=== PATIENT | female | born 1995 | race American Indian/Alaskan Native ===

== ENCOUNTER 2018-10-24 08:12 | Emergency (ER) | payer MEDICAID, OTHER ==
--- NOTE | 2018-10-24 09:05 | Emergency Department Report ---
ED Female HPI - General Chief complaint: Urogenital-Female Stated complaint: VAGINAL DISCOMFORT/ABD PAIN Time Seen by Provider: 10/24/18 08:34 Source: patient Mode of arrival: Ambulatory Limitations: No Limitations - History of Present Illness Initial comments: This is a 22-year-old female who presents complaining of vaginal itching and discharge for the past week. Patient states also having some low pelvic cramping. Patient relates follow-up odor intermittently on and off. Patient states she doesn't concern for STD due to the fact that she had a long time unprotected intercourse. She denies vaginal bleed, fever, dysuria, hematuria MD Complaint: vaginal discharge - Related Data Previous Rx's Medication Instructions Recorded Last Taken Type Naproxen [Naprosyn TAB] 500 mg PO BID #30 tablet 04/09/14 Unknown Rx Ibuprofen [Motrin 600 MG tab] 600 mg PO Q8H PRN #20 tablet 03/31/16 Unknown Rx Fluconazole [Diflucan TAB] 150 mg PO DAILY #2 tablet 10/24/18 Unknown Rx Allergies Allergy/AdvReac Type Severity Reaction Status Date / Time No Known Allergies Allergy Unverified 04/09/14 10:58 ED Review of Systems ROS: Stated complaint: VAGINAL DISCOMFORT/ABD PAIN Other details as noted in HPI Comment: All other systems reviewed and negative ED Past Medical Hx - Past Medical History Previous Medical History?: No - Surgical History Past Surgical History?: No - Social History Smoking Status: Never Smoker Substance Use Type: None - Medications Home Medications: Home Medications Medication Instructions Recorded Confirmed Last Taken Type Naproxen [Naprosyn TAB] 500 mg PO BID #30 tablet 04/09/14 Unknown Rx Ibuprofen [Motrin 600 MG tab] 600 mg PO Q8H PRN #20 tablet 03/31/16 Unknown Rx Fluconazole [Diflucan TAB] 150 mg PO DAILY #2 tablet 10/24/18 Unknown Rx ED Physical Exam - General Limitations: No Limitations General appearance: alert, in no apparent distress - Head Head exam: Present: atraumatic, normocephalic - Eye Eye exam: Present: normal appearance - ENT ENT exam: Present: mucous membranes moist - Neck Neck exam: Present: normal inspection - Respiratory Respiratory exam: Present: normal lung sounds bilaterally. Absent: respiratory distress - Cardiovascular Cardiovascular Exam: Present: regular rate, normal rhythm. Absent: systolic murmur, diastolic murmur, rubs, gallop - GI/Abdominal GI/Abdominal exam: Present: soft, normal bowel sounds. Absent: distended, tenderness, guarding - External exam: Present: normal external exam. Absent: erythema, swelling Speculum exam: Present: vaginal discharge, cervical discharge, other (wet prep some full collected). Absent: vaginal bleeding, laceration Bi-manual exam: Present: normal bi-manual exam. Absent: cervical motion tendernes, adnexal tenderness, uterine tenderness - Extremities Exam Extremities exam: Present: normal inspection - Back Exam Back exam: Present: normal inspection - Neurological Exam Neurological exam: Present: alert, oriented X3 - Psychiatric Psychiatric exam: Present: normal affect, normal mood - Skin Skin exam: Present: warm, dry, intact, normal color. Absent: rash ED Course Vital Signs 10/24/18 10/24/18 08:16 09:07 Temperature 98.7 F Pulse Rate 96 H Respiratory 18 18 Rate Blood Pressure 114/81 O2 Sat by Pulse 98 99 Oximetry ED Medical Decision Making - Medical Decision Making 22-year-old female presents with the use Loni vaginitis Patient will be discharged home with Diflucan 2. Discussed findings with the patient. Urinalysis negative for UTIs and negative test. Discussed all findings with the patient. Discussed that gonorrhea/chlamydia tests will be resulted in 3-4 days to follow-up as needed. Vital signs normal patient's instructions and will follow-up. I discussed than there is no indication of std via wet prep and physical exam Critical care attestation.: If time is entered above; I have spent that time in minutes in the direct care of this critically ill patient, excluding procedure time. ED Disposition Clinical Impression: Yeast infection, Vulvovaginal candidiasis Disposition: - TO HOME OR SELFCARE Is pt being admited?: No Does the pt Need Aspirin: No Condition: Stable Instructions: Vulvovaginal Candidiasis (ED), Vaginitis (ED) Additional Instructions: Make sure to follow up with the primary care physician as discussed. Take all your medications as you've been prescribed. If you have any worsening symptoms or develop new symptoms please return to ED immediately. Prescriptions: Fluconazole [Diflucan TAB] 150 mg PO DAILY #2 tablet Referrals: [facility] [Other] - 3-5 Days Forms: Work/School Release Form(ED) Time of Disposition: 09:50
[2018-10-24 09:19] LABS: Bilirubin,Urine NEG (Negative); Blood,Urine NEG (Negative); Color,Urine Yellow (Yellow); Mucus,Urine 3+ /HPF; Protein,Urine <15 mg/dL mg/dL (Negative)
[2018-10-24 09:40] LABS: HCG Qualitative,Urine Negative (Negative)
[2018-10-24 10:41] VITALS: BP 110/67
== END 2018-10-24 10:38 | disposition home or self-care (01) ==
LOC: ED 08:12
DX: B37.3 Candidiasis of vulva and vagina (principal); B37.9 Candidiasis, unspecified
CPT/HCPCS: 81001; 81025; 87210; 87591

== ENCOUNTER 2018-11-01 16:34 | Emergency (ER) | payer OTHER ==
[2018-11-01] MEDS ORDERED: ROCEPHIN IM ONE (16:46)
[2018-11-01] MEDS ORDERED: XYLOCAINE 1% MPF 5 mL INFILTRATI ONE (16:46)
--- NOTE | 2018-11-01 16:49 | Emergency Department Report ---
ED Recheck HPI - General Chief Complaint: Recheck/Abnormal Lab/Rx Stated Complaint: SENT BY DOCTOR Time Seen by Provider: 11/01/18 16:46 Source: patient Mode of arrival: Ambulatory Limitations: No Limitations - History of Present Illness MD Complaint: other (CALL BACK FOR POS GONNORHEA) Symptoms Since Prior Visit: no new symptoms - Related Data Previous Rx's Medication Instructions Recorded Last Taken Type Naproxen [Naprosyn TAB] 500 mg PO BID #30 tablet 04/09/14 Unknown Rx Ibuprofen [Motrin 600 MG tab] 600 mg PO Q8H PRN #20 tablet 03/31/16 Unknown Rx Fluconazole [Diflucan TAB] 150 mg PO DAILY #2 tablet 10/24/18 Unknown Rx Allergies Allergy/AdvReac Type Severity Reaction Status Date / Time No Known Allergies Allergy Verified 11/01/18 16:36 ED Review of Systems ROS: Stated complaint: SENT BY DOCTOR Other details as noted in HPI Comment: All other systems reviewed and negative ED Past Medical Hx - Past Medical History Previous Medical History?: No Hx Congestive Heart Failure: No - Surgical History Past Surgical History?: No - Family History Family history: no significant - Social History Smoking Status: Never Smoker Substance Use Type: None - Medications Home Medications: Home Medications Medication Instructions Recorded Confirmed Last Taken Type Naproxen [Naprosyn TAB] 500 mg PO BID #30 tablet 04/09/14 Unknown Rx Ibuprofen [Motrin 600 MG tab] 600 mg PO Q8H PRN #20 tablet 03/31/16 Unknown Rx Fluconazole [Diflucan TAB] 150 mg PO DAILY #2 tablet 10/24/18 Unknown Rx ED Physical Exam - General Limitations: No Limitations General appearance: alert - Head Head exam: Present: atraumatic - Eye Eye exam: Present: normal appearance, PERRL - ENT ENT exam: Present: mucous membranes moist - Neck Neck exam: Present: normal inspection - Respiratory Respiratory exam: Present: normal lung sounds bilaterally - Cardiovascular Cardiovascular Exam: Present: regular rate - GI/Abdominal GI/Abdominal exam: Present: soft - Rectal Rectal exam: Present: deferred - Extremities Exam Extremities exam: Present: normal inspection - Back Exam Back exam: Present: normal inspection - Neurological Exam Neurological exam: Present: alert, oriented X3 - Psychiatric Psychiatric exam: Present: normal affect, normal mood ED Recheck MDM - Core Measures Measure Exclusions: not indicated - Medical Decision Making CALL BACK FOR GONORRHEA 4-8 IM ROCEPHIN AND OBGYN FOLLOW UP Vital Signs 11/01/18 16:47 Temperature 99.4 F Pulse Rate 105 H Respiratory 16 Rate Blood Pressure 138/81 O2 Sat by Pulse 100 Oximetry Critical care attestation.: If time is entered above; I have spent that time in minutes in the direct care of this critically ill patient, excluding procedure time. ED Disposition Clinical Impression: Gonorrhea Disposition: DC- TO HOME OR SELFCARE Is pt being admited?: No Does the pt Need Aspirin: No Condition: Stable Instructions: Gonococcal Urethritis (ED) Additional Instructions: SAFE SEX FOLLOW UP OBGYN TO BE SURE THIS GOES AWAY REFERRAL BELOW Referrals: MIGUELINA LALA MD [Staff Physician] - 3-5 Days Time of Disposition: 16:49
[2018-11-01 21:22] VITALS: BP 138/81
== END 2018-11-01 17:44 | disposition home or self-care (01) ==
LOC: ED 16:34
DX: A54.02 Gonococcal vulvovaginitis, unspecified (principal)
CPT/HCPCS: 96372; 99282; J0696

== ENCOUNTER 2021-07-08 16:59 | Outpatient (CLI) | payer OTHER ==
[2021-07-08 18:03] VITALS: BP 130/60
[2021-07-08 18:53] LABS: Bilirubin,Urine NEG (Negative); Blood,Urine NEG (Negative); Color,Urine Yellow (Yellow); Mucus,Urine FEW /HPF; Protein,Urine <15 mg/dL mg/dL (Negative); Urobilinogen,Urine < 2.0 mg/dL (<2.0)
[2021-07-08] MEDS ORDERED: LACTATED RINGERS 500 ML IV ONE (19:32)
== END 2021-07-08 19:06 | disposition home or self-care (01) ==
LOC: TRG 16:59 → APU 17:00 → TRG 19:06
PROVIDERS: ATTEND Obstetrics & Gynecology
DX: Z34.92 Encounter for supervision of normal pregnancy, unspecified, second trimester (principal); Z3A.22 22 weeks gestation of pregnancy
CPT/HCPCS: 59025; 81001

== ENCOUNTER 2021-07-15 15:07 | Outpatient (CLI) | payer OTHER ==
[2021-07-15] MEDS ORDERED: ACETAMINOPHEN 500 MG TAB PO PRN (16:39)
[2021-07-15 16:51] VITALS: BP 115/62
== END 2021-07-15 17:47 | disposition home or self-care (01) ==
LOC: TRG 15:07 → APU 16:04 → TRG 17:47
PROVIDERS: ATTEND Student in an Organized Health Care Education/Training Program
DX: O26.892 Other specified pregnancy related conditions, second trimester (principal); R10.9 Unspecified abdominal pain; M54.50 Low back pain, unspecified; R51.9 Headache, unspecified; Z3A.26 26 weeks gestation of pregnancy
CPT/HCPCS: 59025

== ENCOUNTER 2021-07-24 16:14 | Outpatient (CLI) | payer OTHER ==
[2021-07-24] MEDS ORDERED: LACTATED RINGERS 500 ML IV ONE (16:38)
[2021-07-24 17:05] VITALS: BP 120/71
[2021-07-24 17:41] LABS: Mucus,Urine FEW /HPF
[2021-07-24 17:48] LABS: Bilirubin,Urine NEG (Negative); Blood,Urine MOD (Negative); Color,Urine Yellow (Yellow); Protein,Urine <15 mg/dL mg/dL (Negative); Urobilinogen,Urine < 2.0 mg/dL (<2.0)
[2021-07-24] MEDS ORDERED: hydrOXYzine PAMOATE 25 MG CAP PO ONE (19:47)
== END 2021-07-24 20:04 | disposition home or self-care (01) ==
LOC: TRG 16:14 → APU 16:16 → TRG 20:04
PROVIDERS: ATTEND Student in an Organized Health Care Education/Training Program
DX: O62.9 Abnormality of forces of labor, unspecified (principal); Z3A.29 29 weeks gestation of pregnancy
CPT/HCPCS: 59025; 81001; Q0177; 96360; 96374; J3490

== ENCOUNTER 2021-08-04 16:07 | Outpatient (CLI) | payer OTHER ==
[2021-08-04 16:32] VITALS: BP 116/64
[2021-08-04 17:02] LABS: Bilirubin,Urine NEG (Negative); Blood,Urine NEG (Negative); Color,Urine Yellow (Yellow); Mucus,Urine FEW /HPF; Protein,Urine <15 mg/dL mg/dL (Negative); Urobilinogen,Urine < 2.0 mg/dL (<2.0)
== END 2021-08-04 17:38 | disposition home or self-care (01) ==
LOC: TRG 16:07 → APU 16:08 → TRG 17:38
PROVIDERS: ATTEND Obstetrics & Gynecology
DX: O26.892 Other specified pregnancy related conditions, second trimester (principal); R30.0 Dysuria; Z3A.26 26 weeks gestation of pregnancy
CPT/HCPCS: 59025; 81001

== ENCOUNTER 2021-08-06 19:46 | Inpatient (IN) | payer OTHER ==
[2021-08-06] MEDS ORDERED: LACTATED RINGERS 500 ML IV ONE (21:33)
[2021-08-07] MEDS ORDERED: MAGNESIUM SULFATE 4 GM/100 ML BAG IV ONE (00:54)
[2021-08-07] MEDS ORDERED: NalbUPHINE 10 MG/1 ML INJ IV PRN (00:54)
[2021-08-07] MEDS ORDERED: TERBUTALINE 1 MG/1 ML INJ SUB-Q ONE (00:54)
[2021-08-07] MEDS: BETAMET ACET/BETAMET NA PH 6 MG/ML INJ 5 ML MDV IM SCH ×2 (01:17→17:53)
[2021-08-07] MEDS ORDERED: LACTATED RINGERS 1,000 ML ONE ×2 (01:21→02:34)
[2021-08-07] MEDS ORDERED: ONDANSETRON 4 MG/2 ML INJ IV PRN (01:39)
[2021-08-07] MEDS ORDERED: ACETAMINOPHEN 325 MG TAB PO PRN (01:39)
[2021-08-07] MEDS ORDERED: DOCUSATE SODIUM 100 MG CAP PO PRN (01:39)
[2021-08-07] MEDS ORDERED: SIMETHICONE 80 MG CHEW TAB PO PRN (01:39)
[2021-08-07] MEDS ORDERED: SODIUM CHLORIDE NASAL SPRAY 44ML NS PRN (01:39)
[2021-08-07] MEDS ORDERED: ALUM-MAG HYDROXIDE-SIMETHICONE 200-200-20MG/5ML ORAL LIQD 30 ML PO PRN (01:39)
[2021-08-07] MEDS ORDERED: MAGNESIUM SULFATE 40GM/1000ML 40 GM/1,000 ML BAG IV SCH (02:00)
--- NOTE | 2021-08-07 02:06 | History and Physical Report ---
History of Present Illness Date of examination: 08/07/21 Date of admission: 08/07/21 01:14 Chief complaint: contractions History of present illness: EDC Confirmation: 11/06/2021 Gestational Age: 27 0/7 weeks Past History : 1 Past Medical History: Reviewed and updated today: Negative Past Surgical History: Reviewed and updated today: negative General Comments - FH: Family history negative per patient report. Denies h/o breast, ovarian, uterine, colon, or pancreatic cancer. Social History: Single Works in a [employer] Risk Factors: Smoked Tobacco Use: Never smoker Smokeless Tobacco Use: Never HIV High Risk Behavior: low risk Exercise: no Seatbelt Use: 100 % No Dietary Counseling Reason: pn yes Alcohol Use: no Drug Use: no Past Medical History Anesthesia Complications: negative Anemia: negative Autoimmune Disorder: negative Bleeding Disorder: negative Blood Transfusions: negative Breast Disease: negative Diabetes: negative Heart Disease: negative Hypertension: negative Hepatitis/Liver Disease: negative Kidney Disease/UTI: negative Neurologic/Epilepsy/Migraines: negative Phlebitis/Varicosities: negative Psychiatric: negative Pulmonary Disease/Asthma: negative Thyroid Disease: negative Hospitalizations: negative Surgery (Non-celery packer): negative Abnormal PAP: negative Uterine Anomaly: negative Family Hx: Family history negative per patient report. Denies h/o breast, ovarian, uterine, colon, or pancreatic cancer. Social Hx: Single Works in [employer] Infection History Hx of STD: chlamydia HIV Risk Eval: low risk Personal hx. of genital herpes: no Rash, Viral, or Febrile illness since last LMP? no Genetic History Congenital Heart Defect: Mom: no Dad: no Nichelle Disease: Mom: no Dad: no Thalassemia Mom: no Dad: no Neural Tube Defect Mom: no Dad: no Down's Syndrome Mom: no Dad: no Shan-Sachs Mom: no Dad: no Sickle Cell Disease/Trait Mom: no Dad: no Hemophilia Mom: no Dad: no Muscular Dystrophy Mom: no Dad: no Cystic Fibrosis Mom: no Dad: no Dorothea Chorea Mom: no Dad: no Mental Retardation Mom: no Dad: no Fragile X Mom: no Dad: no Other Genetic/Chromosomal Disorder Mom: no Dad: no Child w/other defect Mom: no Dad: no Current Allergies (reviewed today): No known allergies Past History Past Medical History: no pertinent history, other (see HPI) Past Surgical History: no surgical history, other (see HPI) [employer]PER[employer]OR History: chlamydia, other (see HPI) Family/Genetic History: none, other (see HPI) Social history: no significant social history, other (see HPI) - Obstetrical History Expected Date of Delivery: 11/06/21 Actual Gestation: 27 Week(s) 0 Day(s) : 1 Para: 0 Hx # Term Pregnancies: 0 Number of Pregnancies: 0 Spontaneous Abortions: 0 Induced : 0 Number of Living Children: 0 Medications and Allergies Allergies Allergy/AdvReac Type Severity Reaction Status Date / Time No Known Allergies Allergy Verified 11/01/18 16:36 Home Medications Medication Instructions Recorded Confirmed Last Taken Type Naproxen [Naprosyn TAB] 500 mg PO BID #30 tablet 04/09/14 Unknown Rx Ibuprofen [Motrin 600 MG tab] 600 mg PO Q8H PRN #20 tablet 03/31/16 Unknown Rx Fluconazole (Nf) [Diflucan TAB] 150 mg PO DAILY #2 tablet 10/24/18 Unknown Rx Active Meds: Active Medications Acetaminophen (Acetaminophen 325 Mg Tab) 650 mg PO Q4H PRN PRN Reason: Pain MILD(1-3)/Fever >100.5/SILVESTRE Al Hydrox/Mg Hydrox/Simethicone (Alum-Mag Hydroxide-Simethicone 027-331-25ve/5ml Oral Liqd 30 Ml) 30 ml PO Q6H PRN PRN Reason: Indigestion Betamethasone Acet/Betameth SodPhos (Betamet Acet/Betamet Na Ph 6 Mg/Ml Inj 5 Ml Mdv) 12 mg IM Q24H YANDEL Stop: 08/08/21 01:01 Last Admin: 08/07/21 01:17 Dose: 12 mg Docusate Sodium (Docusate Sodium 100 Mg Cap) 100 mg PO Q12H PRN PRN Reason: Constipation Magnesium Sulfate (Magnesium Sulfate 40gm/1000ml) 40 gm in 1,000 mls @ 50 mls/hr IV DIRECT YANDEL Nalbuphine HCl (Nalbuphine 10 Mg/1 Ml Inj) 10 mg IV Q2H PRN PRN Reason: Pain, Moderate (4-6) Ondansetron HCl (Ondansetron 4 Mg/2 Ml Inj) 4 mg IV Q6H PRN PRN Reason: Nausea And Vomiting Simethicone (Simethicone 80 Mg Chew Tab) 80 mg PO Q6H PRN PRN Reason: Gas pain Sodium Chloride (Sodium Chloride Nasal [place] 44ml) 2 spray NS Q4H PRN PRN Reason: Congestion Review of Systems All systems: negative Genitourinary: contractions, no vaginal bleeding, no leakage of fluid, no genital sores - Vital Signs Vital signs: Vital Signs Temp Pulse Resp BP Pulse Ox 99.4 F 111 H 20 103/72 98 08/06/21 21:23 08/06/21 21:23 08/06/21 21:23 08/06/21 21:23 08/06/21 21:23 Temp Pulse Resp BP Pulse Ox 99.3 F 120 H 20 111/55 98 08/07/21 01:29 08/07/21 01:39 08/07/21 01:29 08/07/21 01:30 08/07/21 01:39 - Physical Exam Breasts: Positive: deferred Cardiovascular: Regular rate Lungs: Positive: Normal air movement Abdomen: Positive: normal appearance, soft. Negative: distention, tenderness, guarding Genitourinary (Female): Positive: normal external genitalia, normal perenium Vulva: both: normal Vagina: Positive: normal moisture Uterus: Positive: normal size, normal contour, other (gravid) Anus/Rectum: Positive: normal perianal skin, heme negative Extremities: Positive: normal - Obstetrical FHR: category 2 Uterine Contraction Monitor Mode: External Cervical Dilatation: 4 Cervical Effacement Percentage: 80 station: OOP Uterine Contraction Pattern: Irregular Uterine Tone Measurement Phase: Resting Results All other labs normal. Tests: (1) Gest. Diabetes 1-Hr Screen ([id number]) ! Gestational Diabetes Screen 71 mg/dL 65-139 *1 According to ADA, a glucose threshold of >139 mg/dL after 50-gram load identifies approximately 80% of women with gestational diabetes mellitus, while the sensitivity is further increased to approximately 90% by a threshold of >129 mg/dL. Tests: (1) Profile I ([id number]) HBsAg Screen Negative Negative *1 RPR Non Reactive Non Reactive *2 Rubella Antibodies, IgG 1.16 index Immune >0.99 *3 Non-immune <0.90 Equivocal 0.90 - 0.99 Immune >0.99 ABO Grouping O *4 Rh Factor Positive *5 Please note: Prior records for this patient's ABO / Rh type are not available for additional verification. Antibody Screen Negative Negative *6 WBC 7.6 x10E3/uL 3.4-10.8 *7 RBC 4.05 x10E6/uL 3.77-5.28 *8 Hemoglobin 11.9 g/dL 11.1-15.9 *9 Hematocrit 36.2 % 34.0-46.6 *10 MCV 89 fL 79-97 *11 MCH 29.4 pg 26.6-33.0 *12 MCHC 32.9 g/dL 31.5-35.7 *13 RDW 11.7 % 11.7-15.4 *14 Platelets 206 x10E3/uL 150-450 *15 Neutrophils 76 % Not Estab. *16 Lymphs 14 % Not Estab. *17 Monocytes 9 % Not Estab. *18 Eos 0 % Not Estab. *19 Basos 0 % Not Estab. *20 ! Immature Cells <No Reported Value> *21 Neutrophils (Absolute) 5.7 x10E3/uL 1.4-7.0 *22 Lymphs (Absolute) 1.1 x10E3/uL 0.7-3.1 *23 Monocytes(Absolute) 0.7 x10E3/uL 0.1-0.9 *24 Eos (Absolute) 0.0 x10E3/uL 0.0-0.4 *25 Baso (Absolute) 0.0 x10E3/uL 0.0-0.2 *26 ! Immature Granulocytes 1 % Not Estab. *27 ! Immature Grans (Abs) 0.1 x10E3/uL 0.0-0.1 *28 ! NRBC <No Reported Value> *29 Hematology Comments: <No Reported Value> *30 Tests: (2) AFP Tetra ([id number]) ! Results Report *31 ! Test Results: *Screen Negative* *32 ! Gest. Age on Collection Date 20.0 WEEKS *33 ! Gestat. Age Based On Ultrasound *34 20.0 on 06/20/2021 ! [age]O [age] *35 ! Race Black *36 ! Weight 176 lbs *37 ! Insulin Dep Diabetes No *38 ! Multiple Gestation No *39 ! AFP Value 71.6 ng/mL *40 ! AFP MoM 1.26 *41 ! hCG Value 62812 mIU/mL *42 ! hCG MoM 0.77 *43 ! uE3 Value 2.32 ng/mL *44 ! uE3 MoM 1.07 *45 ! ETHEL Value 95.16 pg/mL *46 ! ETHEL MoM 0.57 *47 ! [place]BR [place] 1 [place] [address] *48 ! DSR (Second Trimester) 1 [place] [address] *49 ! DSR (By Age) 1 IN 1074 *50 ! T18 Risk Not increased *51 ! T18 (By Age) 1:4185 *52 ! Interpretation NL42 *53 Interpretation: Screen Negative This result is screen negative for OSB, Down Syndrome and Trisomy 18. The AFP MoM and patient specific risks calculated are based on the gestational age and the clinical information provided. This test can identify up to 80% of open neural tube defects. Closed neural tube defects and some open defects may not be detected by this test. The combination of maternal age, AFP, hCG, uE3, and ETHEL identifies 75-80% of Down Syndrome. The combination of maternal age, AFP, hCG and uE3 identifies 60% of Trisomy 18 pregnancies. The [place] [employer] recommends amniocentesis be offered to women age 35 and older. Recalculations are not recommended when gestational dating by LMP and ultrasound are within 10 days. ! Comments: [facility] *54 Aleyda Cotter, Ph.D., [facility] Director References: Available Upon Request. Multiples Of Median Cutoffs Abbreviation Definitions For AFP Elevations IDD- Insulin Dep Diabetes Carney 2.5 Black 2.8 OSBR- Open Spina Bifida IDD 2.0 Twins 4.5 Risk DSR Cutoff 1:270 DSR- Down Syndrome Risk T18 Cutoff 1:100 T18- Trisomy 18 Down Syndrome and Trisomy 18 screening are considered Investigational For further inquiries contact [facility] at [phone]. Tests: (3) SMN1 Copy Number Analysis ([id number]) ! Genetic Counselor: Not applicable *55 ! Specimen Type: [facility] *56 Peripheral Blood ! Ethnicity: [facility] *57 Not Provided ! Indication: [facility] *58 Not Provided ! SMA Results: Note *59 Disease (Gene) Results Interpretation Spinal muscular atrophy NEGATIVE 3 (or more) copies of (SMN1) SMN1. This result reduces but does not eliminate the risk to be a carrier of SMA. Information regarding clinical indication may provide a more detailed interpretation. For ethnic-specific risk revisions with no family history see Information Table. ! General Comments Note *60 Genetic counseling services are available. To access [facility] please visit [email or web address] or call [phone] [phone] ([phone]). ! Additional Clinical Info Note *61 Spinal muscular atrophy (SMA) is an autosomal recessive neurodegenerative disorder with variable age at onset and severity, characterized by progressive degeneration of the lower motor neurons in the spinal cord and brain stem, leading to muscle weakness, and in its most common form, respiratory failure by age two. Complications of SMA may include poor weight gain, sleep difficulties, pneumonia, scoliosis, and joint deformities. In severely affected individuals, abnormal ultrasound findings may include congenital joint contractures, polyhydramnios, and decreased movement (Kris, PMID:[id number]). Treatment is supportive. Targeted therapies may be available for some individuals. Approximately 94% of affected individuals have 0 copies of the SMN1 gene; in these individuals an increase in the number of copies of the SMN2 gene correlates with reduced disease severity (Monet, PMID:[id number]). Individuals with one copy of the SMN1 gene are predicted to be carriers of SMA; those with two or more copies have a reduced carrier risk. For individuals with two copies of the SMN1 gene, the presence or absence of the variant c.*3+80T>G correlates with an increased or decreased risk, respectively, of being a silent carrier (2+0) (Calvin, PMID [id number]; Deon, PMID [id number]). ! Method/Limitations: Note *62 Spinal muscular atrophy: The copy number of SMN1 exon 7 is assessed relative to internal standard reference genes by quantitative polymerase chain reaction (qPCR). A mathematical algorithm calculates 0, 1, 2 and 3 copies with statistical confidence. When no copies of SMN1 are detected, the primer and probe binding sites are sequenced to rule out variants that could interfere with copy number analysis and SMN2 copy number is assessed by digital droplet PCR analysis relative to an internal standard reference gene. For carrier screening, when two copies of SMN1 are detected, allelic discrimination qPCR targeting c.*3+80TG in SMN1 is performed. Limitations: False positive or false negative results may occur for reasons that include genetic variants, blood transfusions, bone marrow transplantation, somatic or tissue-specific mosaicism, mislabeled samples, or erroneous representation of family relationships. ! Information Table Note *63 SMA risk reductions for individuals with no family history Disorder (Gene) Reference Sequence Spinal Muscular Atrophy (SMN1) [id number] Population Detection Pre-test Post-test risk of Post-test Rate carrier being a carrier risk of (Copy risk with 2 copies being a number + carrier SNP) POSITIVE NEGATIVE with 3 for the for the copies c.*3+80T>G c.*3+80T>G SNP SNP 90.3% 1 in 72 1 in 34 1 in 375 1 in 4200 [place] Ashkenazi 92.8% 1 in 67 High risk 1 in 918 1 in 5400 Nondenominational 93.6% 1 in 59 High risk 1 in 907 1 in 5600 95.0% 1 in 47 1 in 29 1 in 921 1 in 5600 92.6% 1 in 68 1 in 140 1 in 906 1 in 5400 Mixed or For counseling purposes, consider using the Other ethnic ethnic background with the most conservative Background risk estimates. includes carriers who are silent carriers (2+0) and Carriers with a pathogenic variant not detected in this Assay Doen, PMID [id number]; Amber, PMID [id number]; Ralph, PMID [id number] ! Disclaimer: Note *64 This test was developed and its performance characteristics determined by [employer]. It has not been cleared or approved by the Food and Drug Administration. [employer] is a business unit of [employer], a wholly-owned subsidiary of [employer]. [employer](R) is a registered service safia of [employer]. Testing performed at [employer], [facility], [place] [address] Analilia Arrieta, PhD, [facility], Graphic Editor This document contains private and confidential information protected by state and federal law. If you have received this document in error, please call ! Director Review Note *65 Jennifer Mulligan, PhD, [facility] Tests: (4) Cystic Fibrosis Profile ([id number]) ! CF, Screen Comment: *66 RESULTS: Negative for 32 mutations analyzed INTERPRETATION: This individual is negative for the mutations analyzed. This negative result may need further interpretation depending on the clinical indication. This result reduces but does not eliminate the risk to be a CF carrier. COMMENTS: The detection rate varies with ethnicity and is listed below. The presence of an undetected mutation in the CF gene cannot be ruled out. In the absence of family history, the remaining risk that a person with a negative result could have at least one CF mutation is listed in the table. If there is a family history of CF, these risk figures do not apply. As detailed information regarding this individual's family history would permit a more accurate assessment of this individual's risk to be a carrier of cystic fibrosis, please contact [facility] at for a revised report. Mutation Detection Detection rates are based on mutation Rates among Ethnic frequencies in patients affected with Groups cystic fibrosis. Among individuals with an atypical or mild presentation (e.g. congenital absence of the vas deferens, pancreatitis) detection rates may vary from those provided here: Carrier risk reduction when no family history Detection Ethnicity Rate Ashkenazi 08/13 to 97% Nondenominational 08/12 to 90% (non-) -Namibian to 69% to 73% to 55% This interpretation is based on the clinical and family relationship information provided and the current understanding of the molecular genetics of this condition. MUTATIONS ANALYZED: G85E V520F E0325N 2183AA to G R117H G542X N7384A 2184delA R334W S549N 394delTT 2789+5G to A R347H S549R 621+1G to T 3120+1G to A R347P G551D 711+1G to T 3659delC A455E R553X 1078delT 3849+10kbC to T MvfzfK411 R560T 1717-1G to A 3876delA ExdjwT694 E5718K 1898+1G to A 3905insT METHODS/LIMITATIONS: DNA is isolated from the sample and tested for the 32 CF mutations on the [employer] Array Platform ([employer]). Regions of the CFTR gene are amplified enzymatically and subjected to a solution-phase multiplex allele-specific primer extension with subsequent hybridization to a bead array and fluorescence detection. Polymorphisms F508C, I506V and I507V are included in this panel to rule out false positive [id number] homozygotes. Reflex testing of 5T is included in the panel for R117H interpretation. False positive or negative results may occur for reasons that include genetic variants, blood transfusions, bone marrow transplantation, erroneous representation of family relationships or contamination of a sample with maternal cells. REFERENCES: 1. Updates on Carrier Screening for Cystic Fibrosis. (2011) Am J Ob Gynecol 117(4):5370-3809 2. Maurice et al. (2004) [facility] Med 6:387-91 3. Charbel et al. (2002) [facility] Med 4:379-391 4. Preconception and carrier screening for cystic fibrosis: (2001)ACOG.ACMG publication Results Released By: Henry Montero, Ph.D. [employer] Report Released By: Henry Montero, Ph.D. [employer] ! Comment: SPRCS *67 The assay provides information intended to be used for carrier screening in adults of reproductive age, as an aid in screening, and as a confirmatory test for another medically established diagnosis in newborns and children. The test is not indicated for use in diagnostic testing, pre-implantation screening, or for any stand-alone diagnostic purposes without confirmation by another medically established diagnostic product or procedure. Tests: (5) HB Solu + Rflx Frac ([id number]) Hemoglobin (Hgb) Solubility Negative Negative *68 Tests: (6) HIV Ag/Ab with Reflex ([id number]) HIV Screen 4th Generation wRfx Non Reactive Non Reactive *69 Tests: (7) Varicella-Zoster V Ab, IgG ([id number]) ! Varicella Zoster IgG 1307 index Immune >165 *70 Negative <135 Equivocal 135 - 165 Positive >165 A positive result generally indicates exposure to the pathogen or administration of specific immunoglobulins, but it is not indication of active infection or stage of disease. Tests: (8) HCV Antibody reflex to BETO ([id number]) HCV Ab <0.1 s/co ratio 0.0-0.9 *71 Tests: (9) Interpretation: ([id number]) ! Interpretation: SPRCS *72 Negative Not infected with HCV, unless recent infection is suspected or other evidence exists to indicate HCV infection. Assessment and Plan A: @27.0 wks gestation, labor P: admit to labor ultrasound completed- fetus is cephalic at this time and 1075g EFW Magnesium Sulfate IV ordered for neuroprotection Betamethasone IM ordered for lung maturity IV fluids to total 125mL/hr continuous efm/toco monitoring, notify provider if >6 contractions/hr or nonreassuring FHT's NICU notified and consult ordered Dr. Figueroa made aware Pt with c/o contractions which started around 5pm and became more painful and regular, less than 10 mins apart by 7pm. Pt denies LOF and VB. Pt denies feeling pain at this time. Reports contractions are irregular s/p IV fluid bolus and terb dose. RN at bedside. POC d/w pt. Questions encouraged and addressed. Pt verbalizes understanding and agrees to POC. SVE performed and pt tolerated well. Pt to transfer to labor unit. - Patient Problems (1) 27 weeks gestation of Current Visit: Yes Status: Acute (2) Echogenic intracardiac focus of fetus on ultrasound Current Visit: Yes Status: Acute (3) Active labor Current Visit: Yes Status: Acute
[2021-08-07 02:41] LABS: Bilirubin,Urine NEG (Negative); Blood,Urine SM (Negative); Color,Urine Yellow (Yellow); Mucus,Urine FEW /HPF; Protein,Urine <15 mg/dL mg/dL (Negative); Urobilinogen,Urine < 2.0 mg/dL (<2.0)
--- NOTE | 2021-08-07 02:41 | Ultrasound Report ---
ULTRASOUND OBSTETRIC INDICATION / CLINICAL INFORMATION: 27 weeks contraction with cervical change. - Clinical Gestational Age (GA) in weeks, days: 27, 0 TECHNIQUE: Transabdominal. COMPARISON: None available. FINDINGS: Single intrauterine . Biparietal Diameter = 6.9 cm = 27, 4 weeks, days Head Circumference = 25.3 cm = 27, 3 weeks, days Abdominal Circumference = 22.9 cm = 27, 2 weeks, days Femur Length = 5.2 cm = 27, 5 weeks, days Average Ultrasound Age (AUA) = 27, 4 weeks, days Heart Rate: 154 beats per minute. Estimated Weight in grams (if calculated): 1075 Estimated Weight Growth Percentile (if calculated): 56% Position: cephalic. Cervix: closed. Length in cm (if measured): 3.3 Placenta: Fundal and free of the os. Grade 0. Amniotic Fluid Volume: normal Amniotic Fluid Index (MELITA) in cm (if calculated): 19.6 cm. Maternal Adnexa: Not evaluated. IMPRESSION: 1. Single, living intrauterine with estimated sonographic age of 27, 4 weeks, days. 2. No significant sonographic abnormality. Signer Name: Amber Conrad MD Signed: 08/07/2021 2:36 AM Workstation Name: [id number]
[2021-08-07 02:43] LABS: Amphetamine Screen,Urine Negative; Benzodiazepines Screen,Urine Negative; Cannabinoid Screen,Urine Negative; Cocaine Screen,Urine Negative; Methadone Screen,Urine Negative; Opiate Screen,Urine Negative
[2021-08-07 03:52] LABS: Basophils % (Auto) 0.1 % (0.0-1.8); Hematocrit 34.4 % (30.3-42.9); Lymphocytes # (Auto) 0.6 K/mm3 (1.2-5.4); Lymphocytes % (Auto) 5.1 % (13.4-35.0); Mean Corpuscular HGB Conc 32 % (30-34); Mean Corpuscular Volume 92 fl (79-97); Monocytes # (Auto) 0.8 K/mm3 (0.0-0.8); Monocytes % (Auto) 6.9 % (0.0-7.3); Platelet Count 197 K/mm3 (140-440); Red Blood Count 3.73 M/mm3 (3.65-5.03); Red Cell Distribution Width 12.9 % (13.2-15.2)
[2021-08-07] MEDS ORDERED: LACTATED RINGERS 1,000 ML IV SCH (04:00)
[2021-08-07 05:15] LABS: Bilirubin,Urine NEG (Negative); Blood,Urine NEG (Negative); Color,Urine Straw (Yellow); Mucus,Urine FEW /HPF; Protein,Urine <15 mg/dL mg/dL (Negative); Urobilinogen,Urine < 2.0 mg/dL (<2.0); WBC,Urine < 1.0 /HPF (0.0-6.0)
[2021-08-07 05:24] LABS: RBC,Urine < 1.0 /HPF (0.0-6.0)
--- NOTE | 2021-08-07 08:01 | Progress Note ---
Assessment and Plan 25y/o @ 27+1 in labor, last SVE 4cms. Pt denies feeling ctx, srom or vag bleeding. Pt reports feeling active FM. - Patient Problems (1) labor in second trimester Current Visit: Yes Status: Acute Qualifiers: labor delivery status: without delivery Qualified Code(s): O60.02 - labor without delivery, second trimester Plan to address problem: continue mag sulfate x24hr post second steroid steroids for lung maturity - first dose 08/07 @ 0117 NICU and AMFM consult (2) 27 weeks gestation of Current Visit: Yes Status: Acute Subjective - Subjective Date of service: 08/07/21 Principal diagnosis: IUP @ 27+1; labor Patient reports: movement normal, no new complaints, no loss of fluid, no vaginal bleeding, no contractions Objective - Vital Signs Vital Signs: Vital Signs - 12hr 08/06/21 08/06/21 08/06/21 21:23 21:27 21:28 Temperature 99.4 F Pulse Rate 111 H 104 H 108 H Respiratory 20 Rate Blood Pressure 130/72 Blood Pressure 103/72 [Right] O2 Sat by Pulse 98 97 Oximetry O2 Sat by Pulse Oximetry [ Bilateral Throughout] 08/06/21 08/06/21 08/06/21 21:32 21:37 21:42 Temperature Pulse Rate 100 H 101 H 105 H Respiratory Rate Blood Pressure Blood Pressure [Right] O2 Sat by Pulse 98 97 97 Oximetry O2 Sat by Pulse Oximetry [ Bilateral Throughout] 08/06/21 08/06/21 08/06/21 21:47 21:52 21:57 Temperature Pulse Rate 105 H 99 H 95 H Respiratory Rate Blood Pressure Blood Pressure [Right] O2 Sat by Pulse 99 97 99 Oximetry O2 Sat by Pulse Oximetry [ Bilateral Throughout] 08/06/21 08/06/21 08/06/21 22:02 22:07 22:12 Temperature Pulse Rate 99 H 100 H 95 H Respiratory Rate Blood Pressure Blood Pressure [Right] O2 Sat by Pulse 100 100 100 Oximetry O2 Sat by Pulse Oximetry [ Bilateral Throughout] 08/06/21 08/06/21 08/07/21 22:17 22:22 01:24 Temperature Pulse Rate 102 H 104 H 128 H Respiratory Rate Blood Pressure Blood Pressure [Right] O2 Sat by Pulse 99 100 99 Oximetry O2 Sat by Pulse Oximetry [ Bilateral Throughout] 08/07/21 08/07/21 08/07/21 01:29 01:30 01:34 Temperature 99.3 F Pulse Rate 125 H 127 H 122 H Respiratory 20 Rate Blood Pressure 111/55 Blood Pressure [Right] O2 Sat by Pulse 98 99 Oximetry O2 Sat by Pulse Oximetry [ Bilateral Throughout] 08/07/21 08/07/21 08/07/21 01:39 02:53 03:33 Temperature Pulse Rate 120 H 115 H 110 H Respiratory Rate Blood Pressure 132/69 Blood Pressure [Right] O2 Sat by Pulse 98 97 Oximetry O2 Sat by Pulse Oximetry [ Bilateral Throughout] 08/07/21 08/07/21 08/07/21 03:35 03:38 03:42 Temperature Pulse Rate 107 H 104 H 108 H Respiratory Rate Blood Pressure Blood Pressure [Right] O2 Sat by Pulse 94 95 96 Oximetry O2 Sat by Pulse Oximetry [ Bilateral Throughout] 08/07/21 08/07/21 08/07/21 03:47 03:48 03:53 Temperature Pulse Rate 107 H 108 H 104 H Respiratory Rate Blood Pressure Blood Pressure [Right] O2 Sat by Pulse 94 94 96 Oximetry O2 Sat by Pulse Oximetry [ Bilateral Throughout] 08/07/21 08/07/21 08/07/21 03:55 03:58 04:03 Temperature Pulse Rate 107 H 108 H 115 H Respiratory Rate Blood Pressure Blood Pressure [Right] O2 Sat by Pulse 94 95 95 Oximetry O2 Sat by Pulse Oximetry [ Bilateral Throughout] 08/07/21 08/07/21 08/07/21 04:08 04:13 04:18 Temperature Pulse Rate 109 H 109 H 104 H Respiratory Rate Blood Pressure Blood Pressure [Right] O2 Sat by Pulse 96 98 95 Oximetry O2 Sat by Pulse Oximetry [ Bilateral Throughout] 08/07/21 08/07/21 08/07/21 04:23 04:27 04:28 Temperature Pulse Rate 106 H 108 H Respiratory 18 Rate Blood Pressure Blood Pressure [Right] O2 Sat by Pulse 98 96 Oximetry O2 Sat by Pulse Oximetry [ Bilateral Throughout] 08/07/21 08/07/21 08/07/21 04:29 04:33 04:38 Temperature Pulse Rate 111 H 112 H Respiratory Rate Blood Pressure Blood Pressure [Right] O2 Sat by Pulse 97 97 Oximetry O2 Sat by Pulse 97 Oximetry [ Bilateral Throughout] 08/07/21 08/07/21 08/07/21 04:42 04:43 04:48 Temperature Pulse Rate 106 H 107 H 108 H Respiratory Rate Blood Pressure 103/51 Blood Pressure [Right] O2 Sat by Pulse 95 94 96 Oximetry O2 Sat by Pulse Oximetry [ Bilateral Throughout] 08/07/21 08/07/21 08/07/21 04:53 04:57 04:58 Temperature Pulse Rate 104 H 103 H 103 H Respiratory Rate Blood Pressure 102/51 Blood Pressure [Right] O2 Sat by Pulse 96 97 Oximetry O2 Sat by Pulse Oximetry [ Bilateral Throughout] 08/07/21 08/07/21 08/07/21 05:03 05:08 05:12 Temperature Pulse Rate 106 H 108 H 100 H Respiratory Rate Blood Pressure 99/50 Blood Pressure [Right] O2 Sat by Pulse 96 96 Oximetry O2 Sat by Pulse Oximetry [ Bilateral Throughout] 08/07/21 08/07/21 08/07/21 05:13 05:18 05:23 Temperature Pulse Rate 102 H 104 H 101 H Respiratory Rate Blood Pressure Blood Pressure [Right] O2 Sat by Pulse 96 96 96 Oximetry O2 Sat by Pulse Oximetry [ Bilateral Throughout] 08/07/21 08/07/21 08/07/21 05:27 05:28 05:33 Temperature Pulse Rate 100 H 105 H 101 H Respiratory 18 Rate Blood Pressure 104/51 Blood Pressure [Right] O2 Sat by Pulse 94 96 Oximetry O2 Sat by Pulse Oximetry [ Bilateral Throughout] 08/07/21 08/07/21 08/07/21 05:38 05:42 05:48 Temperature Pulse Rate 103 H 101 H 100 H Respiratory Rate Blood Pressure 102/54 Blood Pressure [Right] O2 Sat by Pulse 96 96 96 Oximetry O2 Sat by Pulse Oximetry [ Bilateral Throughout] 08/07/21 08/07/21 08/07/21 05:53 05:57 05:58 Temperature Pulse Rate 103 H 99 H 99 H Respiratory Rate Blood Pressure 103/54 Blood Pressure [Right] O2 Sat by Pulse 94 97 Oximetry O2 Sat by Pulse Oximetry [ Bilateral Throughout] 08/07/21 08/07/21 08/07/21 06:02 06:08 06:12 Temperature Pulse Rate 100 H 102 H 100 H Respiratory Rate Blood Pressure 100/53 Blood Pressure [Right] O2 Sat by Pulse 97 97 Oximetry O2 Sat by Pulse Oximetry [ Bilateral Throughout] 08/07/21 08/07/21 08/07/21 06:13 06:18 06:23 Temperature Pulse Rate 98 H 99 H 98 H Respiratory Rate Blood Pressure Blood Pressure [Right] O2 Sat by Pulse 96 96 97 Oximetry O2 Sat by Pulse Oximetry [ Bilateral Throughout] 08/07/21 08/07/21 08/07/21 06:27 06:28 06:33 Temperature Pulse Rate 95 H 96 H 91 H Respiratory Rate Blood Pressure 111/55 Blood Pressure [Right] O2 Sat by Pulse 96 97 Oximetry O2 Sat by Pulse Oximetry [ Bilateral Throughout] 08/07/21 08/07/21 08/07/21 06:38 06:43 06:48 Temperature Pulse Rate 94 H 95 H 107 H Respiratory Rate Blood Pressure 121/58 Blood Pressure [Right] O2 Sat by Pulse 97 98 97 Oximetry O2 Sat by Pulse Oximetry [ Bilateral Throughout] 08/07/21 08/07/21 08/07/21 06:53 06:58 07:03 Temperature Pulse Rate 97 H 103 H 100 H Respiratory Rate Blood Pressure 118/65 Blood Pressure [Right] O2 Sat by Pulse 99 98 99 Oximetry O2 Sat by Pulse Oximetry [ Bilateral Throughout] 08/07/21 08/07/21 08/07/21 07:08 07:12 07:13 Temperature Pulse Rate 97 H 89 92 H Respiratory Rate Blood Pressure 107/58 Blood Pressure [Right] O2 Sat by Pulse 99 96 Oximetry O2 Sat by Pulse Oximetry [ Bilateral Throughout] 08/07/21 08/07/21 08/07/21 07:18 07:23 07:27 Temperature Pulse Rate 92 H 90 88 Respiratory Rate Blood Pressure 103/57 Blood Pressure [Right] O2 Sat by Pulse 96 97 Oximetry O2 Sat by Pulse Oximetry [ Bilateral Throughout] 08/07/21 08/07/21 08/07/21 07:28 07:33 07:38 Temperature Pulse Rate 98 H 88 99 H Respiratory Rate Blood Pressure Blood Pressure [Right] O2 Sat by Pulse 96 97 98 Oximetry O2 Sat by Pulse Oximetry [ Bilateral Throughout] 08/07/21 08/07/21 08/07/21 07:42 07:43 07:48 Temperature Pulse Rate 92 H 95 H 99 H Respiratory Rate Blood Pressure 129/80 Blood Pressure [Right] O2 Sat by Pulse 98 100 Oximetry O2 Sat by Pulse Oximetry [ Bilateral Throughout] 08/07/21 07:53 Temperature Pulse Rate 100 H Respiratory Rate Blood Pressure Blood Pressure [Right] O2 Sat by Pulse 98 Oximetry O2 Sat by Pulse Oximetry [ Bilateral Throughout] - Exam Cardiovascular: Regular rate Lungs: Normal air movement Abdomen: Present: normal appearance, soft. Absent: tenderness, guarding Uterus: Present: normal, fundal height above umbilicus FHR: category 1 Uterine Contraction Monitor Mode: External Uterine Contraction Pattern: Absent Uterine Tone Measurement Phase: Resting Extremities: normal - Labs Labs: Abnormal Labs 08/07/21 08/07/21 03:17 Unknown WBC 11.4 H RDW 12.9 L Lymph % (Auto) 5.1 L Lymph # (Auto) 0.6 L Seg Neutrophils % 87.9 H Seg Neutrophils # 10.0 H Urine WBC (Auto) 138.0 H Laboratory Results - last 24 hr 08/07/21 08/07/21 08/07/21 03:17 03:17 03:17 WBC 11.4 H RBC 3.73 Hgb 11.0 Hct 34.4 MCV 92 MCH 30 MCHC 32 RDW 12.9 L Plt Count 197 Lymph % (Auto) 5.[address] [place] % (Auto) 6.9 Eos % (Auto) 0.0 Baso % (Auto) 0.1 Lymph # (Auto) 0.[address] # (Auto) 0.8 Eos # (Auto) 0.0 Baso # (Auto) 0.0 Seg Neutrophils % 87.9 H Seg Neutrophils # 10.0 H Urine Color Urine Turbidity Urine pH Ur Specific [place] Urine Protein Urine Glucose (UA) Urine Ketones Urine Blood Urine Nitrite Urine Bilirubin Urine Urobilinogen Ur Leukocyte Esterase Urine WBC (Auto) Urine RBC (Auto) U Epithel Cells (Auto) Urine Mucus Urine Opiates Screen Urine Methadone Screen Ur Barbiturates Screen Ur Phencyclidine Scrn Ur Amphetamines Screen U Benzodiazepines Scrn Urine Cocaine Screen U Marijuana (THC) Screen Drugs of Abuse Note Syphilis IgG Antibody Nonreactive Blood Type O POSITIVE Antibody Screen Negative 08/07/21 08/07/21 08/07/21 04:29 Unknown Unknown WBC RBC Hgb Hct MCV MCH MCHC RDW Plt Count Lymph % (Auto) [place] % (Auto) Eos % (Auto) Baso % (Auto) Lymph # (Auto) [place] # (Auto) Eos # (Auto) Baso # (Auto) Seg Neutrophils % Seg Neutrophils # Urine Color Straw Yellow Urine Turbidity Clear Slightly-cloudy Urine pH 7.0 7.0 Ur Specific [place] 1.005 1.008 Urine Protein <15 mg/dl <15 mg/dl Urine Glucose (UA) Neg Neg Urine Ketones 20 Tr Urine Blood Neg Sm Urine Nitrite Neg Neg Urine Bilirubin Neg Neg Urine Urobilinogen < 2.0 < 2.0 Ur Leukocyte Esterase Neg Lg Urine WBC (Auto) < 1.0 138.0 H Urine RBC (Auto) < 1.0 7.0 U Epithel Cells (Auto) < 1.0 8.0 Urine Mucus Few Few Urine Opiates Screen Negative Urine Methadone Screen Negative Ur Barbiturates Screen Negative Ur Phencyclidine Scrn Negative Ur Amphetamines Screen Negative U Benzodiazepines Scrn Negative Urine Cocaine Screen Negative U Marijuana (THC) Screen Negative Drugs of Abuse Note Disclamer Syphilis IgG Antibody Blood Type Antibody Screen
--- NOTE | 2021-08-07 14:33 | Consultation ---
History of Present Illness - Reason for Consult Consult date: 08/07/21 labor, 27 weeks Past History Social history: no significant social history, other (see HPI) Medications and Allergies Allergies Allergy/AdvReac Type Severity Reaction Status Date / Time No Known Allergies Allergy Verified 11/01/18 16:36 Home Medications Medication Instructions Recorded Confirmed Last Taken Type Naproxen [Naprosyn TAB] 500 mg PO BID #30 tablet 04/09/14 Unknown Rx Ibuprofen [Motrin 600 MG tab] 600 mg PO Q8H PRN #20 tablet 03/31/16 Unknown Rx Fluconazole (Nf) [Diflucan TAB] 150 mg PO DAILY #2 tablet 10/24/18 Unknown Rx Active Meds: Active Medications Acetaminophen (Acetaminophen 325 Mg Tab) 650 mg PO Q4H PRN PRN Reason: Pain MILD(1-3)/Fever >100.5/SILVESTRE Al Hydrox/Mg Hydrox/Simethicone (Alum-Mag Hydroxide-Simethicone [phone]/5ml Oral Liqd 30 Ml) 30 ml PO Q6H PRN PRN Reason: Indigestion Betamethasone Acet/Betameth SodPhos (Betamet Acet/Betamet Na Ph 6 Mg/Ml Inj 5 Ml Mdv) 12 mg IM Q24H YANDEL Stop: 08/08/21 01:01 Last Admin: 08/07/21 01:17 Dose: 12 mg Docusate Sodium (Docusate Sodium 100 Mg Cap) 100 mg PO Q12H PRN PRN Reason: Constipation Magnesium Sulfate (Magnesium Sulfate 40gm/1000ml) 40 gm in 1,000 mls @ 50 mls/hr IV DIRECT YANDEL Last Admin: 08/07/21 03:52 Dose: 2 gm/hr, 50 mls/hr Lactated Ringer's (Lactated Ringers) 1,000 mls @ 75 mls/hr IV DIRECT YANDEL Nalbuphine HCl (Nalbuphine 10 Mg/1 Ml Inj) 10 mg IV Q2H PRN PRN Reason: Pain, Moderate (4-6) Last Admin: 08/07/21 04:27 Dose: 10 mg Ondansetron HCl (Ondansetron 4 Mg/2 Ml Inj) 4 mg IV Q6H PRN PRN Reason: Nausea And Vomiting Simethicone (Simethicone 80 Mg Chew Tab) 80 mg PO Q6H PRN PRN Reason: Gas pain Sodium Chloride (Sodium Chloride Nasal [place] 44ml) 2 spray NS Q4H PRN PRN Reason: Congestion Exam - Constitutional Vitals: Temp Pulse Resp BP Pulse Ox 97.7 F 91 H 18 118/84 98 08/07/21 12:52 08/07/21 14:28 08/07/21 12:52 08/07/21 14:11 08/07/21 14:28 Results - Labs CBC & Chem 7: 08/07/21 03:17 Labs: Abnormal lab results 08/07/21 08/07/21 Range/Units 03:17 Unknown WBC 11.4 H (4.5-11.0) K/mm3 RDW 12.9 L (13.2-15.2) % Lymph % (Auto) 5.1 L (13.4-35.0) % Lymph # (Auto) 0.6 L (1.2-5.4) K/mm3 Seg Neutrophils % 87.9 H (40.0-70.0) % Seg Neutrophils # 10.0 H (1.8-7.7) K/mm3 Urine WBC (Auto) 138.0 H (0.0-6.0) /HPF Assessment and Plan NICU CONSULT Done in L&D room 4 on 08/07/21 at 230 pm Asked by OB to consult on this G1 mother who is now 27.1 weeks as of 08/07/21. Mom presented with labor. she is intact and received first celestone at 1 am on 08/07. Mom remains on mag for tocolysis. met with the mother in her L&D room. We discussed in detail the risks of prematurity at this gestation including lung disease including need for ventilator support, bleeding in brain, laborer marine terminal neurodevelopmental outcomes, learning disability, cerebral palsy. mom plans to breastfeed which is wonderful. The mom's milk will have much higher protein than donor breast milk. I reviewed risk of NEC and that [facility] is able to offer prolacta to the allest, most vulnerable infants which is very important. I reviewed need for prolonged NICU admission, jaundice, immature feeding and temperature support. I discussed likely need for blood transfusion if born at 27 weeks. Risk of eye disease also reviewed. Celestone will decrease risk of severe lung disease as well as decreased risk of bleeding in the brain. Mom denies smoking or using any drugs. She states she is otherwise healthy. first . her HERIBERTO is 11[birth year]06[birth year]. She was dated by ultrasound in first trimester. she is taking vitamins as her only meds. She said she did have some vaginal discharge noted when she went into labor yesterday 08/06/21. Mom is on magnesium now and received first celestone at 1 am. Due for 2nd celestone at 1 am on 08/08/21. Ideally would stay on magnesium for 24 hours after the 2nd celestone injection -- but will defer to [facility] for further specific OB management. Mom states her contractions have spaced out and she is in much less pain than she was yesterday evening when she came into L&D. hopefully mom will be able to stay for some time longer especially if she is able to tolerate coming off the magnesium. There was a work up done for UTI - urine culture ordered 08/07. RPR and covid tests are negative. GBS pending. spent 45 minutes on this inpatient consult. Thank you for the NICU consult and please keep NICU informed of any clinical changes. discussed this consult with LINDA Brice. Mariangel Morton MD Hand [employer]ed [employer]
--- NOTE | 2021-08-07 15:47 | Progress Note ---
Assessment and Plan Called by RN d/t pt compliant of leakage of fluids from vagina. ROM + ordered, Speculum exam no evidence of pooling, foul odor present, thick greyish discharge noted on speculum. SVE 6-7/100/0 feels cephalic but will order u/s to confirm. Bag of water palpated during exam , will also check MELITA. D/t suspicion for chorio, abx ordered. Dr. Braswell consulted and aware of pt status. VANIA Whitman CNM - Patient Problems (1) labor in second trimester Current Visit: Yes Status: Acute Qualifiers: labor delivery status: without delivery Qualified Code(s): O60.02 - labor without delivery, second trimester (2) 27 weeks gestation of Current Visit: Yes Status: Acute (3) Foul smelling vaginal discharge Current Visit: Yes Status: Acute Subjective - Subjective Date of service: 08/07/21 Principal diagnosis: IUP @ 27w; labor Patient reports: loss of fluid, movement normal, no new complaints, no vaginal bleeding, no contractions Objective - Vital Signs Vital Signs: Vital Signs - 12hr 08/07/21 08/07/21 08/07/21 03:42 03:47 03:48 Temperature Pulse Rate 108 H 107 H 108 H Respiratory Rate Blood Pressure O2 Sat by Pulse 96 94 94 Oximetry O2 Sat by Pulse Oximetry [ Bilateral Throughout] 08/07/21 08/07/21 08/07/21 03:53 03:55 03:58 Temperature Pulse Rate 104 H 107 H 108 H Respiratory Rate Blood Pressure O2 Sat by Pulse 96 94 95 Oximetry O2 Sat by Pulse Oximetry [ Bilateral Throughout] 08/07/21 08/07/21 08/07/21 04:03 04:08 04:13 Temperature Pulse Rate 115 H 109 H 109 H Respiratory Rate Blood Pressure O2 Sat by Pulse 95 96 98 Oximetry O2 Sat by Pulse Oximetry [ Bilateral Throughout] 08/07/21 08/07/21 08/07/21 04:18 04:23 04:27 Temperature Pulse Rate 104 H 106 H Respiratory 18 Rate Blood Pressure O2 Sat by Pulse 95 98 Oximetry O2 Sat by Pulse Oximetry [ Bilateral Throughout] 08/07/21 08/07/21 08/07/21 04:28 04:29 04:33 Temperature Pulse Rate 108 H 111 H Respiratory Rate Blood Pressure O2 Sat by Pulse 96 97 Oximetry O2 Sat by Pulse 97 Oximetry [ Bilateral Throughout] 08/07/21 08/07/21 08/07/21 04:38 04:42 04:43 Temperature Pulse Rate 112 H 106 H 107 H Respiratory Rate Blood Pressure 103/51 O2 Sat by Pulse 97 95 94 Oximetry O2 Sat by Pulse Oximetry [ Bilateral Throughout] 08/07/21 08/07/21 08/07/21 04:48 04:53 04:57 Temperature Pulse Rate 108 H 104 H 103 H Respiratory Rate Blood Pressure 102/51 O2 Sat by Pulse 96 96 Oximetry O2 Sat by Pulse Oximetry [ Bilateral Throughout] 08/07/21 08/07/21 08/07/21 04:58 05:03 05:08 Temperature Pulse Rate 103 H 106 H 108 H Respiratory Rate Blood Pressure O2 Sat by Pulse 97 96 96 Oximetry O2 Sat by Pulse Oximetry [ Bilateral Throughout] 08/07/21 08/07/21 08/07/21 05:12 05:13 05:18 Temperature Pulse Rate 100 H 102 H 104 H Respiratory Rate Blood Pressure 99/50 O2 Sat by Pulse 96 96 Oximetry O2 Sat by Pulse Oximetry [ Bilateral Throughout] 08/07/21 08/07/21 08/07/21 05:23 05:27 05:28 Temperature Pulse Rate 101 H 100 H 105 H Respiratory 18 Rate Blood Pressure 104/51 O2 Sat by Pulse 96 94 Oximetry O2 Sat by Pulse Oximetry [ Bilateral Throughout] 08/07/21 08/07/21 08/07/21 05:33 05:38 05:42 Temperature Pulse Rate 101 H 103 H 101 H Respiratory Rate Blood Pressure 102/54 O2 Sat by Pulse 96 96 96 Oximetry O2 Sat by Pulse Oximetry [ Bilateral Throughout] 08/07/21 08/07/21 08/07/21 05:48 05:53 05:57 Temperature Pulse Rate 100 H 103 H 99 H Respiratory Rate Blood Pressure 103/54 O2 Sat by Pulse 96 94 Oximetry O2 Sat by Pulse Oximetry [ Bilateral Throughout] 08/07/21 08/07/21 08/07/21 05:58 06:02 06:08 Temperature Pulse Rate 99 H 100 H 102 H Respiratory Rate Blood Pressure O2 Sat by Pulse 97 97 97 Oximetry O2 Sat by Pulse Oximetry [ Bilateral Throughout] 08/07/21 08/07/21 08/07/21 06:12 06:13 06:18 Temperature Pulse Rate 100 H 98 H 99 H Respiratory Rate Blood Pressure 100/53 O2 Sat by Pulse 96 96 Oximetry O2 Sat by Pulse Oximetry [ Bilateral Throughout] 08/07/21 08/07/21 08/07/21 06:23 06:27 06:28 Temperature Pulse Rate 98 H 95 H 96 H Respiratory Rate Blood Pressure 111/55 O2 Sat by Pulse 97 96 Oximetry O2 Sat by Pulse Oximetry [ Bilateral Throughout] 08/07/21 08/07/21 08/07/21 06:33 06:38 06:43 Temperature Pulse Rate 91 H 94 H 95 H Respiratory Rate Blood Pressure 121/58 O2 Sat by Pulse 97 97 98 Oximetry O2 Sat by Pulse Oximetry [ Bilateral Throughout] 08/07/21 08/07/21 08/07/21 06:48 06:53 06:58 Temperature Pulse Rate 107 H 97 H 103 H Respiratory Rate Blood Pressure 118/65 O2 Sat by Pulse 97 99 98 Oximetry O2 Sat by Pulse Oximetry [ Bilateral Throughout] 08/07/21 08/07/21 08/07/21 07:00 07:03 07:08 Temperature Pulse Rate 100 H 97 H Respiratory Rate Blood Pressure O2 Sat by Pulse 99 99 Oximetry O2 Sat by Pulse 99 Oximetry [ Bilateral Throughout] 08/07/21 08/07/21 08/07/21 07:12 07:13 07:18 Temperature Pulse Rate 89 92 H 92 H Respiratory Rate Blood Pressure 107/58 O2 Sat by Pulse 96 96 Oximetry O2 Sat by Pulse Oximetry [ Bilateral Throughout] 08/07/21 08/07/21 08/07/21 07:23 07:27 07:28 Temperature Pulse Rate 90 88 98 H Respiratory Rate Blood Pressure 103/57 O2 Sat by Pulse 97 96 Oximetry O2 Sat by Pulse Oximetry [ Bilateral Throughout] 08/07/21 08/07/21 08/07/21 07:33 07:38 07:42 Temperature Pulse Rate 88 99 H 92 H Respiratory Rate Blood Pressure 129/80 O2 Sat by Pulse 97 98 Oximetry O2 Sat by Pulse Oximetry [ Bilateral Throughout] 08/07/21 08/07/21 08/07/21 07:43 07:48 07:53 Temperature Pulse Rate 95 H 99 H 100 H Respiratory Rate Blood Pressure O2 Sat by Pulse 98 100 98 Oximetry O2 Sat by Pulse Oximetry [ Bilateral Throughout] 08/07/21 08/07/21 08/07/21 07:57 07:58 08:03 Temperature Pulse Rate 100 H 101 H 104 H Respiratory Rate Blood Pressure 123/78 O2 Sat by Pulse 100 98 Oximetry O2 Sat by Pulse Oximetry [ Bilateral Throughout] 08/07/21 08/07/21 08/07/21 08:08 08:12 08:13 Temperature Pulse Rate 101 H 97 H 100 H Respiratory Rate Blood Pressure 113/70 O2 Sat by Pulse 99 99 Oximetry O2 Sat by Pulse Oximetry [ Bilateral Throughout] 08/07/21 08/07/21 08/07/21 08:18 08:23 08:27 Temperature Pulse Rate 93 H 102 H 96 H Respiratory Rate Blood Pressure 113/71 O2 Sat by Pulse 97 97 Oximetry O2 Sat by Pulse Oximetry [ Bilateral Throughout] 08/07/21 08/07/21 08/07/21 08:28 08:33 08:38 Temperature Pulse Rate 98 H 100 H 100 H Respiratory Rate Blood Pressure O2 Sat by Pulse 99 99 100 Oximetry O2 Sat by Pulse Oximetry [ Bilateral Throughout] 08/07/21 08/07/21 08/07/21 08:42 08:43 08:48 Temperature Pulse Rate 98 H 100 H 95 H Respiratory Rate Blood Pressure 111/71 O2 Sat by Pulse 99 100 Oximetry O2 Sat by Pulse Oximetry [ Bilateral Throughout] 08/07/21 08/07/21 08/07/21 08:53 08:57 08:58 Temperature Pulse Rate 92 H 96 H 98 H Respiratory Rate Blood Pressure 111/70 O2 Sat by Pulse 100 98 Oximetry O2 Sat by Pulse Oximetry [ Bilateral Throughout] 08/07/21 08/07/21 08/07/21 09:03 09:08 09:13 Temperature Pulse Rate 101 H 98 H 98 H Respiratory Rate Blood Pressure O2 Sat by Pulse 99 99 99 Oximetry O2 Sat by Pulse Oximetry [ Bilateral Throughout] 08/07/21 08/07/21 08/07/21 09:18 09:23 09:28 Temperature 98.6 F Pulse Rate 96 H 100 H 100 H Respiratory 20 Rate Blood Pressure O2 Sat by Pulse 99 99 99 Oximetry O2 Sat by Pulse Oximetry [ Bilateral Throughout] 08/07/21 08/07/21 08/07/21 09:33 09:38 09:43 Temperature Pulse Rate 103 H 97 H 86 Respiratory Rate Blood Pressure O2 Sat by Pulse 99 98 98 Oximetry O2 Sat by Pulse Oximetry [ Bilateral Throughout] 08/07/21 08/07/21 08/07/21 09:48 09:53 09:58 Temperature Pulse Rate 88 102 H 100 H Respiratory Rate Blood Pressure O2 Sat by Pulse 99 99 98 Oximetry O2 Sat by Pulse Oximetry [ Bilateral Throughout] 08/07/21 08/07/21 08/07/21 10:03 10:08 10:11 Temperature Pulse Rate 102 H 105 H 99 H Respiratory Rate Blood Pressure 116/69 O2 Sat by Pulse 99 99 Oximetry O2 Sat by Pulse Oximetry [ Bilateral Throughout] 08/07/21 08/07/21 08/07/21 10:13 10:18 10:23 Temperature Pulse Rate 98 H 104 H 99 H Respiratory Rate Blood Pressure O2 Sat by Pulse 99 99 99 Oximetry O2 Sat by Pulse Oximetry [ Bilateral Throughout] 08/07/21 08/07/21 08/07/21 10:28 10:33 10:38 Temperature Pulse Rate 116 H 107 H 109 H Respiratory Rate Blood Pressure O2 Sat by Pulse 98 99 99 Oximetry O2 Sat by Pulse Oximetry [ Bilateral Throughout] 08/07/21 08/07/21 08/07/21 10:43 10:48 10:53 Temperature Pulse Rate 112 H 117 H 108 H Respiratory Rate Blood Pressure O2 Sat by Pulse 98 99 98 Oximetry O2 Sat by Pulse Oximetry [ Bilateral Throughout] 08/07/21 08/07/21 08/07/21 10:58 11:03 11:08 Temperature Pulse Rate 107 H 107 H 107 H Respiratory Rate Blood Pressure O2 Sat by Pulse 99 98 98 Oximetry O2 Sat by Pulse Oximetry [ Bilateral Throughout] 08/07/21 08/07/21 08/07/21 11:11 11:13 11:18 Temperature Pulse Rate 106 H 107 H 102 H Respiratory Rate Blood Pressure 115/68 O2 Sat by Pulse 98 99 Oximetry O2 Sat by Pulse Oximetry [ Bilateral Throughout] 08/07/21 08/07/21 08/07/21 11:23 11:28 11:33 Temperature Pulse Rate 104 H 105 H 93 H Respiratory Rate Blood Pressure O2 Sat by Pulse 99 99 99 Oximetry O2 Sat by Pulse Oximetry [ Bilateral Throughout] 08/07/21 08/07/21 08/07/21 11:38 11:43 11:48 Temperature Pulse Rate 103 H 105 H 110 H Respiratory Rate Blood Pressure O2 Sat by Pulse 100 100 100 Oximetry O2 Sat by Pulse Oximetry [ Bilateral Throughout] 08/07/21 08/07/21 08/07/21 11:53 11:58 12:03 Temperature Pulse Rate 107 H 107 H 109 H Respiratory Rate Blood Pressure O2 Sat by Pulse 100 99 100 Oximetry O2 Sat by Pulse Oximetry [ Bilateral Throughout] 08/07/21 08/07/21 08/07/21 12:08 12:12 12:13 Temperature Pulse Rate 104 H 107 H 106 H Respiratory Rate Blood Pressure 105/57 O2 Sat by Pulse 100 100 Oximetry O2 Sat by Pulse Oximetry [ Bilateral Throughout] 08/07/21 08/07/21 08/07/21 12:18 12:23 12:28 Temperature Pulse Rate 102 H 103 H 101 H Respiratory Rate Blood Pressure O2 Sat by Pulse 99 100 99 Oximetry O2 Sat by Pulse Oximetry [ Bilateral Throughout] 08/07/21 08/07/21 08/07/21 12:33 12:38 12:43 Temperature Pulse Rate 103 H 102 H 104 H Respiratory Rate Blood Pressure O2 Sat by Pulse 99 98 98 Oximetry O2 Sat by Pulse Oximetry [ Bilateral Throughout] 08/07/21 08/07/21 08/07/21 12:48 12:52 12:53 Temperature 97.7 F Pulse Rate 103 H 102 H Respiratory 18 Rate Blood Pressure O2 Sat by Pulse 99 98 Oximetry O2 Sat by Pulse Oximetry [ Bilateral Throughout] 08/07/21 08/07/21 08/07/21 12:58 13:03 13:08 Temperature Pulse Rate 98 H 101 H 97 H Respiratory Rate Blood Pressure O2 Sat by Pulse 98 99 98 Oximetry O2 Sat by Pulse Oximetry [ Bilateral Throughout] 08/07/21 08/07/21 08/07/21 13:11 13:13 13:18 Temperature Pulse Rate 89 90 91 H Respiratory Rate Blood Pressure 108/62 O2 Sat by Pulse 97 98 Oximetry O2 Sat by Pulse Oximetry [ Bilateral Throughout] 08/07/21 08/07/21 08/07/21 13:23 13:28 13:33 Temperature Pulse Rate 91 H 94 H 90 Respiratory Rate Blood Pressure O2 Sat by Pulse 96 97 97 Oximetry O2 Sat by Pulse Oximetry [ Bilateral Throughout] 08/07/21 08/07/21 08/07/21 13:38 13:42 13:43 Temperature Pulse Rate 89 92 H 92 H Respiratory Rate Blood Pressure O2 Sat by Pulse 96 98 94 Oximetry O2 Sat by Pulse Oximetry [ Bilateral Throughout] 08/07/21 08/07/21 08/07/21 13:48 13:53 13:58 Temperature Pulse Rate 94 H 90 94 H Respiratory Rate Blood Pressure O2 Sat by Pulse 97 97 96 Oximetry O2 Sat by Pulse Oximetry [ Bilateral Throughout] 08/07/21 08/07/21 08/07/21 14:03 14:08 14:11 Temperature Pulse Rate 89 95 H 93 H Respiratory Rate Blood Pressure 118/84 O2 Sat by Pulse 96 98 Oximetry O2 Sat by Pulse Oximetry [ Bilateral Throughout] 08/07/21 08/07/21 08/07/21 14:13 14:18 14:23 Temperature Pulse Rate 93 H 88 91 H Respiratory Rate Blood Pressure O2 Sat by Pulse 99 97 97 Oximetry O2 Sat by Pulse Oximetry [ Bilateral Throughout] 08/07/21 08/07/21 08/07/21 14:28 14:33 14:38 Temperature Pulse Rate 91 H 92 H 97 H Respiratory Rate Blood Pressure O2 Sat by Pulse 98 98 98 Oximetry O2 Sat by Pulse Oximetry [ Bilateral Throughout] 08/07/21 08/07/21 08/07/21 14:43 14:48 14:53 Temperature Pulse Rate 91 H 97 H 95 H Respiratory Rate Blood Pressure O2 Sat by Pulse 99 99 99 Oximetry O2 Sat by Pulse Oximetry [ Bilateral Throughout] 08/07/21 08/07/21 08/07/21 14:58 15:03 15:08 Temperature Pulse Rate 95 H 92 H 93 H Respiratory Rate Blood Pressure O2 Sat by Pulse 98 99 99 Oximetry O2 Sat by Pulse Oximetry [ Bilateral Throughout] 08/07/21 08/07/21 08/07/21 15:11 15:13 15:18 Temperature Pulse Rate 95 H 97 H 94 H Respiratory Rate Blood Pressure 114/73 O2 Sat by Pulse 97 97 Oximetry O2 Sat by Pulse Oximetry [ Bilateral Throughout] 08/07/21 08/07/21 08/07/21 15:23 15:28 15:33 Temperature Pulse Rate 100 H 94 H 102 H Respiratory Rate Blood Pressure O2 Sat by Pulse 98 99 99 Oximetry O2 Sat by Pulse Oximetry [ Bilateral Throughout] 08/07/21 15:38 Temperature Pulse Rate 103 H Respiratory Rate Blood Pressure O2 Sat by Pulse 99 Oximetry O2 Sat by Pulse Oximetry [ Bilateral Throughout] - Exam Abdomen: Present: normal appearance, soft. Absent: tenderness Vulva: both: normal Uterus: Present: normal Cervical Dilatation: 6.5 Cervical Effacement Percentage: 100 station: 0 Uterine Contraction Frequency (min): irregular Uterine Contraction Pattern: Irregular - Labs Labs: Abnormal Labs 08/07/21 08/07/21 08/07/21 03:17 14:07 Unknown WBC 11.4 H RDW 12.9 L Lymph % (Auto) 5.1 L Lymph # (Auto) 0.6 L Seg Neutrophils % 87.9 H Seg Neutrophils # 10.0 H Magnesium 5.30 H Urine WBC (Auto) 138.0 H Laboratory Results - last 24 hr 08/07/21 08/07/21 08/07/21 03:17 03:17 03:17 WBC 11.4 H RBC 3.73 Hgb 11.0 Hct 34.4 MCV 92 MCH 30 MCHC 32 RDW 12.9 L Plt Count 197 Lymph % (Auto) 5.1 L [place] % (Auto) 6.9 Eos % (Auto) 0.0 Baso % (Auto) 0.1 Lymph # (Auto) 0.6 L [place] # (Auto) 0.8 Eos # (Auto) 0.0 Baso # (Auto) 0.0 Seg Neutrophils % 87.9 H Seg Neutrophils # 10.0 H Magnesium Urine Color Urine Turbidity Urine pH Ur Specific [place] Urine Protein Urine Glucose (UA) Urine Ketones Urine Blood Urine Nitrite Urine Bilirubin Urine Urobilinogen Ur Leukocyte Esterase Urine WBC (Auto) Urine RBC (Auto) U Epithel Cells (Auto) Urine Mucus Urine Opiates Screen Urine Methadone Screen Ur Barbiturates Screen Ur Phencyclidine Scrn Ur Amphetamines Screen U Benzodiazepines Scrn Urine Cocaine Screen U Marijuana (THC) Screen Drugs of Abuse Note Syphilis IgG Antibody Nonreactive SARS-CoV-2 (PCR) Blood Type O POSITIVE Antibody Screen Negative 08/07/21 08/07/21 08/07/21 04:29 09:40 14:07 WBC RBC Hgb Hct MCV MCH MCHC RDW Plt Count Lymph % (Auto) [place] % (Auto) Eos % (Auto) Baso % (Auto) Lymph # (Auto) [place] # (Auto) Eos # (Auto) Baso # (Auto) Seg Neutrophils % Seg Neutrophils # Magnesium 5.30 H Urine Color Straw Urine Turbidity Clear Urine pH 7.0 Ur Specific [place] 1.005 Urine Protein <15 mg/dl Urine Glucose (UA) Neg Urine Ketones 20 Urine Blood Neg Urine Nitrite Neg Urine Bilirubin Neg Urine Urobilinogen < 2.0 Ur Leukocyte Esterase Neg Urine WBC (Auto) < 1.0 Urine RBC (Auto) < 1.0 U Epithel Cells (Auto) < 1.0 Urine Mucus Few Urine Opiates Screen Urine Methadone Screen Ur Barbiturates Screen Ur Phencyclidine Scrn Ur Amphetamines Screen U Benzodiazepines Scrn Urine Cocaine Screen U Marijuana (THC) Screen Drugs of Abuse Note Syphilis IgG Antibody SARS-CoV-2 (PCR) Negative Blood Type Antibody Screen 08/07/21 08/07/21 Unknown Unknown WBC RBC Hgb Hct MCV MCH MCHC RDW Plt Count Lymph % (Auto) [place] % (Auto) Eos % (Auto) Baso % (Auto) Lymph # (Auto) [place] # (Auto) Eos # (Auto) Baso # (Auto) Seg Neutrophils % Seg Neutrophils # Magnesium Urine Color Yellow Urine Turbidity Slightly-cloudy Urine pH 7.0 Ur Specific [place] 1.008 Urine Protein <15 mg/dl Urine Glucose (UA) Neg Urine Ketones Tr Urine Blood Sm Urine Nitrite Neg Urine Bilirubin Neg Urine Urobilinogen < 2.0 Ur Leukocyte Esterase Lg Urine WBC (Auto) 138.0 H Urine RBC (Auto) 7.0 U Epithel Cells (Auto) 8.0 Urine Mucus Few Urine Opiates Screen Negative Urine Methadone Screen Negative Ur Barbiturates Screen Negative Ur Phencyclidine Scrn Negative Ur Amphetamines Screen Negative U Benzodiazepines Scrn Negative Urine Cocaine Screen Negative U Marijuana (THC) Screen Negative Drugs of Abuse Note Disclamer Syphilis IgG Antibody SARS-CoV-2 (PCR) Blood Type Antibody Screen
[2021-08-07] MEDS: AMPICILLIN/NS 2 GM/100 ML 2 GM/100 ML BAG IV SCH ×2 (16:21→23:04)
[2021-08-07] MEDS ORDERED: GENTAMICIN/NS 100 MG/100 ML 100 MG/100 ML BAG IV SCH (17:00)
[2021-08-07] MEDS: GENTAMICIN/NS 80 MG/100 ML 100 ML IV SCH ×2 (17:40→17:49)
[2021-08-07] MEDS ORDERED: metroNIDAZOLE 500 MG TAB PO ONE ×2 (18:00→18:02)
--- NOTE | 2021-08-07 18:09 | Event Note ---
Date: 08/07/21 ROM + resulted negative however MELITA dropped from 19cm to 13cms. cephalic presentation. no abd tenderness or fever at this time. wet prep + trich. treated with flagyl for trich. will continue with abx and continue to monitor. Per Dr. Velazquez, if pt develops fever or abdominal tenderness facilitate delivery.
--- NOTE | 2021-08-07 18:12 | Ultrasound Report ---
ULTRASOUND OBSTETRIC COMPLETE INDICATION / CLINICAL INFORMATION: Evaluate presentation, MELITA, 27 weeks labor. TECHNIQUE: Transabdominal. COMPARISON: None available. FINDINGS: NUMBER: Single PRESENTATION: cephalic PLACENTA: posterior and free of the os. MATERNAL ADNEXA: No significant abnormality. AMNIOTIC FLUID VOLUME: normal AMNIOTIC FLUID INDEX (MELITA) in cm (if measured): 13.5 ANATOMY: Detailed anatomic evaluation was not performed. MEASUREMENTS: - Biparietal Diameter = 6.9 cm = 27.4 weeks.days - Head Circumference = 25.3 cm = 27.3 weeks.days - Abdominal Circumference = 22.9 cm = 27.2 weeks.days - Femur Length = 5.2 cm = 27.5 weeks.days - Estimated Weight (in grams, if calculated): 1075 - Heart Rate (beats per minute): 154 ADDITIONAL FINDINGS: None. PERCENTILE ESTIMATED WEIGHT (if calculated): 56 AVERAGE ULTRASOUND AGE (AUA) in weeks.days = 27.4 IMPRESSION: 1. Single intrauterine with AUA of 27.4 weeks.days 2. No significant sonographic abnormality. Signer Name: Fady Leyva MD Signed: 08/07/2021 6:08 PM Workstation Name: [id number]
--- NOTE | 2021-08-07 18:21 | Consultation ---
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, other (see HPI) Family/Genetic History: none, other (see HPI) - Obstetrical History : 1 Medications and Allergies Allergies Allergy/AdvReac Type Severity Reaction Status Date / Time No Known Allergies Allergy Verified 11/01/18 16:36 Home Medications Medication Instructions Recorded Confirmed Last Taken Type Naproxen [Naprosyn TAB] 500 mg PO BID #30 tablet 04/09/14 Unknown Rx Ibuprofen [Motrin 600 MG tab] 600 mg PO Q8H PRN #20 tablet 03/31/16 Unknown Rx Fluconazole (Nf) [Diflucan TAB] 150 mg PO DAILY #2 tablet 10/24/18 Unknown Rx Active Meds: Active Medications Acetaminophen (Acetaminophen 325 Mg Tab) 650 mg PO Q4H PRN PRN Reason: Pain MILD(1-3)/Fever >100.5/SILVESTRE Al Hydrox/Mg Hydrox/Simethicone (Alum-Mag Hydroxide-Simethicone [id number]/5ml Oral Liqd 30 Ml) 30 ml PO Q6H PRN PRN Reason: Indigestion Betamethasone Acet/Betameth SodPhos (Betamet Acet/Betamet Na Ph 6 Mg/Ml Inj 5 Ml Mdv) 12 mg IM Q24H YANDEL Stop: 08/08/21 01:01 Last Admin: 08/07/21 17:53 Dose: 12 mg Docusate Sodium (Docusate Sodium 100 Mg Cap) 100 mg PO Q12H PRN PRN Reason: Constipation Magnesium Sulfate (Magnesium Sulfate 40gm/1000ml) 40 gm in 1,000 mls @ 50 mls/hr IV DIRECT YANDEL Last Admin: 08/07/21 03:52 Dose: 2 gm/hr, 50 mls/hr Lactated Ringer's (Lactated Ringers) 1,000 mls @ 75 mls/hr IV DIRECT YANDEL Last Admin: 08/07/21 15:42 Dose: 75 mls/hr Ampicillin Sodium (Ampicillin/Ns 2 Gm/100 Ml) 2 gm in 100 mls @ 100 mls/hr IV Q6H YANDEL; Protocol Last Admin: 08/07/21 16:21 Dose: 100 mls/hr Clindamycin HCl (Cleocin 900 Mg/50 Ml) 900 mg in 50 mls @ 100 mls/hr IV Q8H YANDEL; Protocol Last Admin: 08/07/21 16:41 Dose: 100 mls/hr Gentamicin Sulfate/Sodium Chloride (Gentamicin/Ns 80 Mg/100 Ml) 100 mls @ 200 mls/hr IV PKCONSULT YANDEL; Protocol Last Admin: 08/07/21 17:49 Dose: 200 mls/hr Gentamicin Sulfate/Sodium Chloride (Gentamicin/Ns 100 Mg/100 Ml) 100 mg in 100 mls @ 200 mls/hr IV Q8H YANDEL Nalbuphine HCl (Nalbuphine 10 Mg/1 Ml Inj) 10 mg IV Q2H PRN PRN Reason: Pain, Moderate (4-6) Last Admin: 08/07/21 04:27 Dose: 10 mg Ondansetron HCl (Ondansetron 4 Mg/2 Ml Inj) 4 mg IV Q6H PRN PRN Reason: Nausea And Vomiting Simethicone (Simethicone 80 Mg Chew Tab) 80 mg PO Q6H PRN PRN Reason: Gas pain Sodium Chloride (Sodium Chloride Nasal [place] 44ml) 2 spray NS Q4H PRN PRN Reason: Congestion - Vital Signs Vital signs: Vital Signs Temp Pulse Resp BP Pulse Ox 99.4 F 111 H 20 103/72 98 08/06/21 21:23 08/06/21 21:23 08/06/21 21:23 08/06/21 21:23 08/06/21 21:23 Temp Pulse Resp BP Pulse Ox 98.5 F 107 H 20 117/60 98 08/07/21 15:50 08/07/21 18:19 08/07/21 15:50 08/07/21 18:11 08/07/21 18:19 Results Result Diagrams: 08/07/21 03:17 Abnormal lab results 08/07/21 08/07/21 08/07/21 Range/Units 03:17 14:07 Unknown WBC 11.4 H (4.5-11.0) K/mm3 RDW 12.9 L (13.2-15.2) % Lymph % (Auto) 5.1 L (13.4-35.0) % Lymph # (Auto) 0.6 L (1.2-5.4) K/mm3 Seg Neutrophils % 87.9 H (40.0-70.0) % Seg Neutrophils # 10.0 H (1.8-7.7) K/mm3 Magnesium 5.30 H (1.7-2.3) mg/dL Urine WBC (Auto) 138.0 H (0.0-6.0) /HPF All other labs normal. Assessment and Plan [facility] pt seen Full consult to follow
--- NOTE | 2021-08-07 20:22 | Progress Note ---
Assessment and Plan Pt reported additional leaking/discharge and pressure in her rectum when she has a contractions - small amount of greenish foul smelling liquid noted on towel under patient and on perineum. SVE now 8cms. Pt reports tenderness during palpation of abdomen. reviewed findings with Dr. Braswell, pt now meets criteria for chorioamnionitis. Will d/c mag, patient may have epidural for pain and will proceed with expediting delivery. - Patient Problems (1) labor in second trimester Current Visit: Yes Status: Acute Qualifiers: labor delivery status: without delivery Qualified Code(s): O60.02 - labor without delivery, second trimester (2) 27 weeks gestation of Current Visit: Yes Status: Acute (3) Foul smelling vaginal discharge Current Visit: Yes Status: Acute Subjective - Subjective Date of service: 08/07/21 Principal diagnosis: IUP @ 27w; labor Patient reports: loss of fluid, movement normal, no new complaints, no vaginal bleeding, no contractions Objective - Vital Signs Vital Signs: Vital Signs - 12hr 08/07/21 08/07/21 08/07/21 08:23 08:27 08:28 Temperature Pulse Rate 102 H 96 H 98 H Respiratory Rate Blood Pressure 113/71 O2 Sat by Pulse 97 99 Oximetry 08/07/21 08/07/21 08/07/21 08:33 08:38 08:42 Temperature Pulse Rate 100 H 100 H 98 H Respiratory Rate Blood Pressure 111/71 O2 Sat by Pulse 99 100 Oximetry 08/07/21 08/07/21 08/07/21 08:43 08:48 08:53 Temperature Pulse Rate 100 H 95 H 92 H Respiratory Rate Blood Pressure O2 Sat by Pulse 99 100 100 Oximetry 08/07/21 08/07/21 08/07/21 08:57 08:58 09:03 Temperature Pulse Rate 96 H 98 H 101 H Respiratory Rate Blood Pressure 111/70 O2 Sat by Pulse 98 99 Oximetry 08/07/21 08/07/21 08/07/21 09:08 09:13 09:18 Temperature 98.6 F Pulse Rate 98 H 98 H 96 H Respiratory 20 Rate Blood Pressure O2 Sat by Pulse 99 99 99 Oximetry 08/07/21 08/07/21 08/07/21 09:23 09:28 09:33 Temperature Pulse Rate 100 H 100 H 103 H Respiratory Rate Blood Pressure O2 Sat by Pulse 99 99 99 Oximetry 08/07/21 08/07/21 08/07/21 09:38 09:43 09:48 Temperature Pulse Rate 97 H 86 88 Respiratory Rate Blood Pressure O2 Sat by Pulse 98 98 99 Oximetry 08/07/21 08/07/21 08/07/21 09:53 09:58 10:03 Temperature Pulse Rate 102 H 100 H 102 H Respiratory Rate Blood Pressure O2 Sat by Pulse 99 98 99 Oximetry 08/07/21 08/07/21 08/07/21 10:08 10:11 10:13 Temperature Pulse Rate 105 H 99 H 98 H Respiratory Rate Blood Pressure 116/69 O2 Sat by Pulse 99 99 Oximetry 08/07/21 08/07/21 08/07/21 10:18 10:23 10:28 Temperature Pulse Rate 104 H 99 H 116 H Respiratory Rate Blood Pressure O2 Sat by Pulse 99 99 98 Oximetry 08/07/21 08/07/21 08/07/21 10:33 10:38 10:43 Temperature Pulse Rate 107 H 109 H 112 H Respiratory Rate Blood Pressure O2 Sat by Pulse 99 99 98 Oximetry 08/07/21 08/07/21 08/07/21 10:48 10:53 10:58 Temperature Pulse Rate 117 H 108 H 107 H Respiratory Rate Blood Pressure O2 Sat by Pulse 99 98 99 Oximetry 08/07/21 08/07/21 08/07/21 11:03 11:08 11:11 Temperature Pulse Rate 107 H 107 H 106 H Respiratory Rate Blood Pressure 115/68 O2 Sat by Pulse 98 98 Oximetry 08/07/21 08/07/21 08/07/21 11:13 11:18 11:23 Temperature Pulse Rate 107 H 102 H 104 H Respiratory Rate Blood Pressure O2 Sat by Pulse 98 99 99 Oximetry 08/07/21 08/07/21 08/07/21 11:28 11:33 11:38 Temperature Pulse Rate 105 H 93 H 103 H Respiratory Rate Blood Pressure O2 Sat by Pulse 99 99 100 Oximetry 08/07/21 08/07/21 08/07/21 11:43 11:48 11:53 Temperature Pulse Rate 105 H 110 H 107 H Respiratory Rate Blood Pressure O2 Sat by Pulse 100 100 100 Oximetry 08/07/21 08/07/21 08/07/21 11:58 12:03 12:08 Temperature Pulse Rate 107 H 109 H 104 H Respiratory Rate Blood Pressure O2 Sat by Pulse 99 100 100 Oximetry 08/07/21 08/07/21 08/07/21 12:12 12:13 12:18 Temperature Pulse Rate 107 H 106 H 102 H Respiratory Rate Blood Pressure 105/57 O2 Sat by Pulse 100 99 Oximetry 08/07/21 08/07/21 08/07/21 12:23 12:28 12:33 Temperature Pulse Rate 103 H 101 H 103 H Respiratory Rate Blood Pressure O2 Sat by Pulse 100 99 99 Oximetry 08/07/21 08/07/21 08/07/21 12:38 12:43 12:48 Temperature Pulse Rate 102 H 104 H 103 H Respiratory Rate Blood Pressure O2 Sat by Pulse 98 98 99 Oximetry 08/07/21 08/07/21 08/07/21 12:52 12:53 12:58 Temperature 97.7 F Pulse Rate 102 H 98 H Respiratory 18 Rate Blood Pressure O2 Sat by Pulse 98 98 Oximetry 08/07/21 08/07/21 08/07/21 13:03 13:08 13:11 Temperature Pulse Rate 101 H 97 H 89 Respiratory Rate Blood Pressure 108/62 O2 Sat by Pulse 99 98 Oximetry 08/07/21 08/07/21 08/07/21 13:13 13:18 13:23 Temperature Pulse Rate 90 91 H 91 H Respiratory Rate Blood Pressure O2 Sat by Pulse 97 98 96 Oximetry 08/07/21 08/07/21 08/07/21 13:28 13:33 13:38 Temperature Pulse Rate 94 H 90 89 Respiratory Rate Blood Pressure O2 Sat by Pulse 97 97 96 Oximetry 08/07/21 08/07/21 08/07/21 13:42 13:43 13:48 Temperature Pulse Rate 92 H 92 H 94 H Respiratory Rate Blood Pressure O2 Sat by Pulse 98 94 97 Oximetry 08/07/21 08/07/21 08/07/21 13:53 13:58 14:03 Temperature Pulse Rate 90 94 H 89 Respiratory Rate Blood Pressure O2 Sat by Pulse 97 96 96 Oximetry 08/07/21 08/07/21 08/07/21 14:08 14:11 14:13 Temperature Pulse Rate 95 H 93 H 93 H Respiratory Rate Blood Pressure 118/84 O2 Sat by Pulse 98 99 Oximetry 08/07/21 08/07/21 08/07/21 14:18 14:23 14:28 Temperature Pulse Rate 88 91 H 91 H Respiratory Rate Blood Pressure O2 Sat by Pulse 97 97 98 Oximetry 08/07/21 08/07/21 08/07/21 14:33 14:38 14:43 Temperature Pulse Rate 92 H 97 H 91 H Respiratory Rate Blood Pressure O2 Sat by Pulse 98 98 99 Oximetry 08/07/21 08/07/21 08/07/21 14:48 14:53 14:58 Temperature Pulse Rate 97 H 95 H 95 H Respiratory Rate Blood Pressure O2 Sat by Pulse 99 99 98 Oximetry 08/07/21 08/07/21 08/07/21 15:03 15:08 15:11 Temperature Pulse Rate 92 H 93 H 95 H Respiratory Rate Blood Pressure 114/73 O2 Sat by Pulse 99 99 Oximetry 08/07/21 08/07/21 08/07/21 15:13 15:18 15:23 Temperature Pulse Rate 97 H 94 H 100 H Respiratory Rate Blood Pressure O2 Sat by Pulse 97 97 98 Oximetry 08/07/21 08/07/21 08/07/21 15:28 15:33 15:38 Temperature Pulse Rate 94 H 102 H 103 H Respiratory Rate Blood Pressure O2 Sat by Pulse 99 99 99 Oximetry 08/07/21 08/07/21 08/07/21 15:43 15:48 15:50 Temperature 98.5 F Pulse Rate 98 H 102 H Respiratory 20 Rate Blood Pressure O2 Sat by Pulse 99 97 Oximetry 08/07/21 08/07/21 08/07/21 15:53 15:58 16:03 Temperature Pulse Rate 104 H 107 H 107 H Respiratory Rate Blood Pressure O2 Sat by Pulse 98 98 98 Oximetry 08/07/21 08/07/21 08/07/21 16:08 16:13 16:18 Temperature Pulse Rate 105 H 99 H 97 H Respiratory Rate Blood Pressure O2 Sat by Pulse 100 98 100 Oximetry 08/07/21 08/07/21 08/07/21 16:23 16:28 16:33 Temperature Pulse Rate 104 H 104 H 99 H Respiratory Rate Blood Pressure O2 Sat by Pulse 100 99 100 Oximetry 08/07/21 08/07/21 08/07/21 16:38 16:43 16:48 Temperature Pulse Rate 106 H 112 H 104 H Respiratory Rate Blood Pressure O2 Sat by Pulse 99 99 100 Oximetry 08/07/21 08/07/21 08/07/21 16:53 16:58 17:03 Temperature Pulse Rate 107 H 102 H 100 H Respiratory Rate Blood Pressure O2 Sat by Pulse 100 99 100 Oximetry 08/07/21 08/07/21 08/07/21 17:08 17:13 17:18 Temperature Pulse Rate 105 H 104 H 112 H Respiratory Rate Blood Pressure O2 Sat by Pulse 99 98 100 Oximetry 08/07/21 08/07/21 08/07/21 17:23 17:28 17:29 Temperature Pulse Rate 102 H 79 109 H Respiratory Rate Blood Pressure O2 Sat by Pulse 99 91 100 Oximetry 08/07/21 08/07/21 08/07/21 17:34 17:39 17:44 Temperature Pulse Rate 106 H 119 H 121 H Respiratory Rate Blood Pressure O2 Sat by Pulse 99 99 100 Oximetry 08/07/21 08/07/21 08/07/21 17:49 17:54 17:59 Temperature Pulse Rate 117 H 110 H 106 H Respiratory Rate Blood Pressure O2 Sat by Pulse 99 99 99 Oximetry 08/07/21 08/07/21 08/07/21 18:04 18:09 18:11 Temperature Pulse Rate 107 H 108 H 106 H Respiratory Rate Blood Pressure 119/69 117/60 O2 Sat by Pulse 99 99 Oximetry 08/07/21 08/07/21 08/07/21 18:14 18:19 18:24 Temperature Pulse Rate 107 H 107 H 108 H Respiratory Rate Blood Pressure O2 Sat by Pulse 100 98 100 Oximetry 08/07/21 08/07/21 08/07/21 18:29 18:33 18:39 Temperature Pulse Rate 106 H 107 H 109 H Respiratory Rate Blood Pressure O2 Sat by Pulse 99 99 100 Oximetry 08/07/21 08/07/21 08/07/21 18:44 18:49 18:54 Temperature Pulse Rate 109 H 104 H 106 H Respiratory Rate Blood Pressure O2 Sat by Pulse 99 100 100 Oximetry 08/07/21 08/07/21 08/07/21 18:59 19:04 19:08 Temperature Pulse Rate 103 H 106 H 109 H Respiratory Rate Blood Pressure O2 Sat by Pulse 99 98 97 Oximetry 08/07/21 08/07/21 08/07/21 19:11 19:14 19:19 Temperature Pulse Rate 104 H 103 H 102 H Respiratory Rate Blood Pressure 101/60 O2 Sat by Pulse 97 100 Oximetry 08/07/21 08/07/21 08/07/21 19:22 19:24 19:29 Temperature Pulse Rate 107 H 104 H 106 H Respiratory Rate Blood Pressure O2 Sat by Pulse 83 L 99 98 Oximetry 08/07/21 08/07/21 08/07/21 19:34 19:39 19:44 Temperature Pulse Rate 101 H 102 H 100 H Respiratory Rate Blood Pressure O2 Sat by Pulse 99 98 98 Oximetry 08/07/21 08/07/21 08/07/21 19:49 19:54 19:59 Temperature Pulse Rate 98 H 99 H 108 H Respiratory Rate Blood Pressure O2 Sat by Pulse 98 98 99 Oximetry 08/07/21 08/07/21 08/07/21 20:04 20:09 20:11 Temperature Pulse Rate 107 H 107 H 108 H Respiratory Rate Blood Pressure 122/67 O2 Sat by Pulse 98 73 L Oximetry 08/07/21 20:14 Temperature Pulse Rate 109 H Respiratory Rate Blood Pressure O2 Sat by Pulse 99 Oximetry - Exam Abdomen: Present: tenderness (in lower abdomen) FHR: category 2 Uterine Contraction Monitor Mode: External Cervical Dilatation: 8 Cervical Effacement Percentage: 100 station: -1 Uterine Contraction Pattern: Irregular - Labs Labs: Abnormal Labs 08/07/21 08/07/21 08/07/21 03:17 14:07 19:16 WBC 11.4 H RDW 12.9 L Lymph % (Auto) 5.1 L Lymph # (Auto) 0.6 L Seg Neutrophils % 87.9 H Seg Neutrophils # 10.0 H Magnesium 5.30 H 4.70 H Urine WBC (Auto) 08/07/21 Unknown WBC RDW Lymph % (Auto) Lymph # (Auto) Seg Neutrophils % Seg Neutrophils # Magnesium Urine WBC (Auto) 138.0 H Laboratory Results - last 24 hr 08/07/21 08/07/21 08/07/21 03:17 03:17 03:17 WBC 11.4 H RBC 3.73 Hgb 11.0 Hct 34.4 MCV 92 MCH 30 MCHC 32 RDW 12.9 L Plt Count 197 Lymph % (Auto) 5.1 L [place] % (Auto) 6.9 Eos % (Auto) 0.0 Baso % (Auto) 0.1 Lymph # (Auto) 0.6 L [place] # (Auto) 0.8 Eos # (Auto) 0.0 Baso # (Auto) 0.0 Seg Neutrophils % 87.9 H Seg Neutrophils # 10.0 H Magnesium Urine Color Urine Turbidity Urine pH Ur Specific [place] Urine Protein Urine Glucose (UA) Urine Ketones Urine Blood Urine Nitrite Urine Bilirubin Urine Urobilinogen Ur Leukocyte Esterase Urine WBC (Auto) Urine RBC (Auto) U Epithel Cells (Auto) Urine Mucus Membranes Rupture Urine Opiates Screen Urine Methadone Screen Ur Barbiturates Screen Ur Phencyclidine Scrn Ur Amphetamines Screen U Benzodiazepines Scrn Urine Cocaine Screen U Marijuana (THC) Screen Drugs of Abuse Note Syphilis IgG Antibody Nonreactive SARS-CoV-2 (PCR) Blood Type O POSITIVE Antibody Screen Negative 08/07/21 08/07/21 08/07/21 04:29 09:40 14:07 WBC RBC Hgb Hct MCV MCH MCHC RDW Plt Count Lymph % (Auto) [place] % (Auto) Eos % (Auto) Baso % (Auto) Lymph # (Auto) [place] # (Auto) Eos # (Auto) Baso # (Auto) Seg Neutrophils % Seg Neutrophils # Magnesium 5.30 H Urine Color Straw Urine Turbidity Clear Urine pH 7.0 Ur Specific [place] 1.005 Urine Protein <15 mg/dl Urine Glucose (UA) Neg Urine Ketones 20 Urine Blood Neg Urine Nitrite Neg Urine Bilirubin Neg Urine Urobilinogen < 2.0 Ur Leukocyte Esterase Neg Urine WBC (Auto) < 1.0 Urine RBC (Auto) < 1.0 U Epithel Cells (Auto) < 1.0 Urine Mucus Few Membranes Rupture Urine Opiates Screen Urine Methadone Screen Ur Barbiturates Screen Ur Phencyclidine Scrn Ur Amphetamines Screen U Benzodiazepines Scrn Urine Cocaine Screen U Marijuana (THC) Screen Drugs of Abuse Note Syphilis IgG Antibody SARS-CoV-2 (PCR) Negative Blood Type Antibody Screen 08/07/21 08/07/21 08/07/21 15:30 19:16 Unknown WBC RBC Hgb Hct MCV MCH MCHC RDW Plt Count Lymph % (Auto) [place] % (Auto) Eos % (Auto) Baso % (Auto) Lymph # (Auto) [place] # (Auto) Eos # (Auto) Baso # (Auto) Seg Neutrophils % Seg Neutrophils # Magnesium 4.70 H Urine Color Yellow Urine Turbidity Slightly-cloudy Urine pH 7.0 Ur Specific [place] 1.008 Urine Protein <15 mg/dl Urine Glucose (UA) Neg Urine Ketones Tr Urine Blood Sm Urine Nitrite Neg Urine Bilirubin Neg Urine Urobilinogen < 2.0 Ur Leukocyte Esterase Lg Urine WBC (Auto) 138.0 H Urine RBC (Auto) 7.0 U Epithel Cells (Auto) 8.0 Urine Mucus Few Membranes Rupture Negative Urine Opiates Screen Urine Methadone Screen Ur Barbiturates Screen Ur Phencyclidine Scrn Ur Amphetamines Screen U Benzodiazepines Scrn Urine Cocaine Screen U Marijuana (THC) Screen Drugs of Abuse Note Syphilis IgG Antibody SARS-CoV-2 (PCR) Blood Type Antibody Screen 08/07/21 Unknown WBC RBC Hgb Hct MCV MCH MCHC RDW Plt Count Lymph % (Auto) [place] % (Auto) Eos % (Auto) Baso % (Auto) Lymph # (Auto) [place] # (Auto) Eos # (Auto) Baso # (Auto) Seg Neutrophils % Seg Neutrophils # Magnesium Urine Color Urine Turbidity Urine pH Ur Specific [place] Urine Protein Urine Glucose (UA) Urine Ketones Urine Blood Urine Nitrite Urine Bilirubin Urine Urobilinogen Ur Leukocyte Esterase Urine WBC (Auto) Urine RBC (Auto) U Epithel Cells (Auto) Urine Mucus Membranes Rupture Urine Opiates Screen Negative Urine Methadone Screen Negative Ur Barbiturates Screen Negative Ur Phencyclidine Scrn Negative Ur Amphetamines Screen Negative U Benzodiazepines Scrn Negative Urine Cocaine Screen Negative U Marijuana (THC) Screen Negative Drugs of Abuse Note Disclamer Syphilis IgG Antibody SARS-CoV-2 (PCR) Blood Type Antibody Screen
[2021-08-07] MEDS ORDERED: NALOXONE 2 MG/2 ML INJ IV PRN (21:06)
[2021-08-07] MEDS ORDERED: ePHEDrine SULFATE 50 MG/1 ML INJ IV PRN (21:06)
--- NOTE | 2021-08-07 21:09 | Anesthesia Consultation ---
Anesthesia Consult and Med Hx Date of service: 08/07/21 - Airway Anesthetic Teeth Evaluation: Poor ROM Head & Neck: Adequate Mental/Hyoid Distance: Adequate Mallampati Class: Class II Intubation Access Assessment: Probably Good - Pulmonary Exam CTA: Yes - Cardiac Exam Cardiac Exam: RRR - Pre-Operative Health Status ASA Pre-Surgery Classification: ASA3 Proposed Anesthetic Plan: Epidural - Pulmonary Hx Smoking: No Hx Asthma: No COPD: No Hx Pneumonia: No - Cardiovascular System Hx Hypertension: No - Central Nervous System Hx Neuromuscular Disorder: No Hx Seizures: No Hx Psychiatric Problems: No - Gastrointestinal Hx Gastroesophageal Reflux Disease: Yes - Endocrine Hx Renal Disease: No Hx End Stage Renal Disease: No Hx Liver Disease: No Hx Insulin Dependent Diabetes: No Hx Non-Insulin Dependent Diabetes: No Hx Hypothyroidism: No Hx Hyperthyroidism: No - Hematic Hx Anemia: No Hx Sickle Cell Disease: No - Other Systems Hx Alcohol Use: No Hx Substance Use: No Hx Obesity: Yes
[2021-08-07] MEDS ORDERED: BUPIVACAINE/PF (0.25%) 2.5 MG/ML 10 ML VIAL INFILTRATI ONE (21:21)
--- NOTE | 2021-08-07 21:56 | Progress Note ---
Labor Epidural - Labor Epidural Start Time: 21:34 Stop Time: 21:42 Performed by:: MAYRA CURRAN Procedure: Patient is requesting epidural for labor pain. H&P and labs reviewed. Procedure explained, questions answered, consent obtained. Patient placed in sitting position with monitors applied. Timeout performed immediately before start of procedure. Prep/drape in usual sterile fashion. Skin localized 3 mL 1% lidocaine at L[3]-L[4] interspace. 17-gauge Touhy epidural needle advanced to FRITZ with saline at [8] cm. No blood/CSF noted via epidural needle. Epidural catheter advanced to [12] cm. Negative aspiration for blood and CSF via catheter, negative response to test dose 3 ml 1.5% lidocaine w/ epi. Sterile dressing applied followed by tape reinforcement. Patient tolerated procedure well. No immediate complications noted.
[2021-08-07] MEDS ORDERED: fentaNYL-BUPIV 2 MCG/ML-0.125% 200 MCG/100 ML BAG EPIDURAL SCH (22:00)
--- NOTE | 2021-08-07 22:28 | Progress Note ---
Assessment and Plan - Patient Problems (1) 27 weeks gestation of Current Visit: Yes Status: Acute (2) Chorioamnionitis in second trimester Current Visit: Yes Status: Acute Qualifiers: Fetus number: single or unspecified fetus Qualified Code(s): O41.1220 - Chorioamnionitis, second trimester, not applicable or unspecified Plan to address problem: Now with lower pelvis tenderness with palpation. Findings discussed with patient, vertex confirmed by US. Chorioamnionitis explained, need for delivery discussed. Cervical exam initially 8/-3 with bulging bag and purulent vaginal drainage. After verbal consent obtained AROM performed, copious, clear malodorous fluid noted. Head descended to 0 station. No evidence of cord prolapse. Anticipate vaginal delivery. NICU team aware. (3) Active labor Current Visit: Yes Status: Acute (4) Echogenic intracardiac focus of fetus on ultrasound Current Visit: Yes Status: Acute Subjective - Subjective Date of service: 08/07/21 Principal diagnosis: IUP @ 27w; labor, chorioamnionitis Patient reports: loss of fluid, movement normal, other (pelvic pain), no new complaints, no vaginal bleeding, no contractions Objective - Vital Signs Vital Signs: Vital Signs - 12hr 08/07/21 08/07/21 08/07/21 10:28 10:33 10:38 Temperature Pulse Rate 116 H 107 H 109 H Respiratory Rate Blood Pressure O2 Sat by Pulse 98 99 99 Oximetry 08/07/21 08/07/21 08/07/21 10:43 10:48 10:53 Temperature Pulse Rate 112 H 117 H 108 H Respiratory Rate Blood Pressure O2 Sat by Pulse 98 99 98 Oximetry 08/07/21 08/07/21 08/07/21 10:58 11:03 11:08 Temperature Pulse Rate 107 H 107 H 107 H Respiratory Rate Blood Pressure O2 Sat by Pulse 99 98 98 Oximetry 08/07/21 08/07/21 08/07/21 11:11 11:13 11:18 Temperature Pulse Rate 106 H 107 H 102 H Respiratory Rate Blood Pressure 115/68 O2 Sat by Pulse 98 99 Oximetry 08/07/21 08/07/21 08/07/21 11:23 11:28 11:33 Temperature Pulse Rate 104 H 105 H 93 H Respiratory Rate Blood Pressure O2 Sat by Pulse 99 99 99 Oximetry 08/07/21 08/07/21 08/07/21 11:38 11:43 11:48 Temperature Pulse Rate 103 H 105 H 110 H Respiratory Rate Blood Pressure O2 Sat by Pulse 100 100 100 Oximetry 08/07/21 08/07/21 08/07/21 11:53 11:58 12:03 Temperature Pulse Rate 107 H 107 H 109 H Respiratory Rate Blood Pressure O2 Sat by Pulse 100 99 100 Oximetry 08/07/21 08/07/21 08/07/21 12:08 12:12 12:13 Temperature Pulse Rate 104 H 107 H 106 H Respiratory Rate Blood Pressure 105/57 O2 Sat by Pulse 100 100 Oximetry 08/07/21 08/07/21 08/07/21 12:18 12:23 12:28 Temperature Pulse Rate 102 H 103 H 101 H Respiratory Rate Blood Pressure O2 Sat by Pulse 99 100 99 Oximetry 08/07/21 08/07/21 08/07/21 12:33 12:38 12:43 Temperature Pulse Rate 103 H 102 H 104 H Respiratory Rate Blood Pressure O2 Sat by Pulse 99 98 98 Oximetry 08/07/21 08/07/21 08/07/21 12:48 12:52 12:53 Temperature 97.7 F Pulse Rate 103 H 102 H Respiratory 18 Rate Blood Pressure O2 Sat by Pulse 99 98 Oximetry 08/07/21 08/07/21 08/07/21 12:58 13:03 13:08 Temperature Pulse Rate 98 H 101 H 97 H Respiratory Rate Blood Pressure O2 Sat by Pulse 98 99 98 Oximetry 08/07/21 08/07/21 08/07/21 13:11 13:13 13:18 Temperature Pulse Rate 89 90 91 H Respiratory Rate Blood Pressure 108/62 O2 Sat by Pulse 97 98 Oximetry 08/07/21 08/07/21 08/07/21 13:23 13:28 13:33 Temperature Pulse Rate 91 H 94 H 90 Respiratory Rate Blood Pressure O2 Sat by Pulse 96 97 97 Oximetry 08/07/21 08/07/21 08/07/21 13:38 13:42 13:43 Temperature Pulse Rate 89 92 H 92 H Respiratory Rate Blood Pressure O2 Sat by Pulse 96 98 94 Oximetry 08/07/21 08/07/21 08/07/21 13:48 13:53 13:58 Temperature Pulse Rate 94 H 90 94 H Respiratory Rate Blood Pressure O2 Sat by Pulse 97 97 96 Oximetry 08/07/21 08/07/21 08/07/21 14:03 14:08 14:11 Temperature Pulse Rate 89 95 H 93 H Respiratory Rate Blood Pressure 118/84 O2 Sat by Pulse 96 98 Oximetry 08/07/21 08/07/21 08/07/21 14:13 14:18 14:23 Temperature Pulse Rate 93 H 88 91 H Respiratory Rate Blood Pressure O2 Sat by Pulse 99 97 97 Oximetry 08/07/21 08/07/21 08/07/21 14:28 14:33 14:38 Temperature Pulse Rate 91 H 92 H 97 H Respiratory Rate Blood Pressure O2 Sat by Pulse 98 98 98 Oximetry 08/07/21 08/07/21 08/07/21 14:43 14:48 14:53 Temperature Pulse Rate 91 H 97 H 95 H Respiratory Rate Blood Pressure O2 Sat by Pulse 99 99 99 Oximetry 08/07/21 08/07/21 08/07/21 14:58 15:03 15:08 Temperature Pulse Rate 95 H 92 H 93 H Respiratory Rate Blood Pressure O2 Sat by Pulse 98 99 99 Oximetry 08/07/21 08/07/21 08/07/21 15:11 15:13 15:18 Temperature Pulse Rate 95 H 97 H 94 H Respiratory Rate Blood Pressure 114/73 O2 Sat by Pulse 97 97 Oximetry 08/07/21 08/07/21 08/07/21 15:23 15:28 15:33 Temperature Pulse Rate 100 H 94 H 102 H Respiratory Rate Blood Pressure O2 Sat by Pulse 98 99 99 Oximetry 08/07/21 08/07/21 08/07/21 15:38 15:43 15:48 Temperature Pulse Rate 103 H 98 H 102 H Respiratory Rate Blood Pressure O2 Sat by Pulse 99 99 97 Oximetry 08/07/21 08/07/21 08/07/21 15:50 15:53 15:58 Temperature 98.5 F Pulse Rate 104 H 107 H Respiratory 20 Rate Blood Pressure O2 Sat by Pulse 98 98 Oximetry 08/07/21 08/07/21 08/07/21 16:03 16:08 16:13 Temperature Pulse Rate 107 H 105 H 99 H Respiratory Rate Blood Pressure O2 Sat by Pulse 98 100 98 Oximetry 08/07/21 08/07/21 08/07/21 16:18 16:23 16:28 Temperature Pulse Rate 97 H 104 H 104 H Respiratory Rate Blood Pressure O2 Sat by Pulse 100 100 99 Oximetry 08/07/21 08/07/21 08/07/21 16:33 16:38 16:43 Temperature Pulse Rate 99 H 106 H 112 H Respiratory Rate Blood Pressure O2 Sat by Pulse 100 99 99 Oximetry 08/07/21 08/07/21 08/07/21 16:48 16:53 16:58 Temperature Pulse Rate 104 H 107 H 102 H Respiratory Rate Blood Pressure O2 Sat by Pulse 100 100 99 Oximetry 08/07/21 08/07/21 08/07/21 17:03 17:08 17:13 Temperature Pulse Rate 100 H 105 H 104 H Respiratory Rate Blood Pressure O2 Sat by Pulse 100 99 98 Oximetry 08/07/21 08/07/21 08/07/21 17:18 17:23 17:28 Temperature Pulse Rate 112 H 102 H 79 Respiratory Rate Blood Pressure O2 Sat by Pulse 100 99 91 Oximetry 08/07/21 08/07/21 08/07/21 17:29 17:34 17:39 Temperature Pulse Rate 109 H 106 H 119 H Respiratory Rate Blood Pressure O2 Sat by Pulse 100 99 99 Oximetry 08/07/21 08/07/21 08/07/21 17:44 17:49 17:54 Temperature Pulse Rate 121 H 117 H 110 H Respiratory Rate Blood Pressure O2 Sat by Pulse 100 99 99 Oximetry 08/07/21 08/07/21 08/07/21 17:59 18:04 18:09 Temperature Pulse Rate 106 H 107 H 108 H Respiratory Rate Blood Pressure 119/69 O2 Sat by Pulse 99 99 99 Oximetry 08/07/21 08/07/21 08/07/21 18:11 18:14 18:19 Temperature Pulse Rate 106 H 107 H 107 H Respiratory Rate Blood Pressure 117/60 O2 Sat by Pulse 100 98 Oximetry 08/07/21 08/07/21 08/07/21 18:24 18:29 18:33 Temperature Pulse Rate 108 H 106 H 107 H Respiratory Rate Blood Pressure O2 Sat by Pulse 100 99 99 Oximetry 08/07/21 08/07/21 08/07/21 18:39 18:44 18:49 Temperature Pulse Rate 109 H 109 H 104 H Respiratory Rate Blood Pressure O2 Sat by Pulse 100 99 100 Oximetry 08/07/21 08/07/21 08/07/21 18:54 18:59 19:04 Temperature Pulse Rate 106 H 103 H 106 H Respiratory Rate Blood Pressure O2 Sat by Pulse 100 99 98 Oximetry 08/07/21 08/07/21 08/07/21 19:08 19:11 19:14 Temperature Pulse Rate 109 H 104 H 103 H Respiratory Rate Blood Pressure 101/60 O2 Sat by Pulse 97 97 Oximetry 08/07/21 08/07/21 08/07/21 19:19 19:22 19:24 Temperature Pulse Rate 102 H 107 H 104 H Respiratory Rate Blood Pressure O2 Sat by Pulse 100 83 L 99 Oximetry 08/07/21 08/07/21 08/07/21 19:29 19:34 19:39 Temperature Pulse Rate 106 H 101 H 102 H Respiratory Rate Blood Pressure O2 Sat by Pulse 98 99 98 Oximetry 08/07/21 08/07/21 08/07/21 19:44 19:49 19:54 Temperature Pulse Rate 100 H 98 H 99 H Respiratory Rate Blood Pressure O2 Sat by Pulse 98 98 98 Oximetry 08/07/21 08/07/21 08/07/21 19:59 20:04 20:09 Temperature Pulse Rate 108 H 107 H 107 H Respiratory Rate Blood Pressure O2 Sat by Pulse 99 98 73 L Oximetry 08/07/21 08/07/21 08/07/21 20:11 20:14 20:19 Temperature Pulse Rate 108 H 109 H 108 H Respiratory Rate Blood Pressure 122/67 O2 Sat by Pulse 99 100 Oximetry 08/07/21 08/07/21 08/07/21 20:24 20:29 20:34 Temperature Pulse Rate 106 H 113 H 111 H Respiratory Rate Blood Pressure O2 Sat by Pulse 100 100 99 Oximetry 08/07/21 08/07/21 08/07/21 20:39 20:44 20:49 Temperature Pulse Rate 112 H 114 H 108 H Respiratory Rate Blood Pressure O2 Sat by Pulse 99 99 100 Oximetry 08/07/21 08/07/21 08/07/21 20:54 20:59 21:04 Temperature Pulse Rate 111 H 109 H 104 H Respiratory Rate Blood Pressure O2 Sat by Pulse 100 99 100 Oximetry 08/07/21 08/07/21 08/07/21 21:09 21:11 21:14 Temperature Pulse Rate 106 H 107 H 105 H Respiratory Rate Blood Pressure 106/56 O2 Sat by Pulse 100 99 Oximetry 01/08/07/21 08/07/21 21:19 21:24 21:29 Temperature Pulse Rate 108 H 110 H 120 H Respiratory Rate Blood Pressure O2 Sat by Pulse 99 100 100 Oximetry 08/07/21 08/07/21 08/07/21 21:34 21:39 21:43 Temperature Pulse Rate 122 H 132 H 115 H Respiratory Rate Blood Pressure 116/68 O2 Sat by Pulse 99 99 Oximetry 08/07/21 08/07/21 08/07/21 21:44 21:45 21:47 Temperature Pulse Rate 115 H 112 H 117 H Respiratory Rate Blood Pressure 104/59 101/54 O2 Sat by Pulse 97 Oximetry 08/07/21 08/07/21 08/07/21 21:49 21:51 21:53 Temperature Pulse Rate 114 H 114 H 106 H Respiratory Rate Blood Pressure 92/51 98/55 91/50 O2 Sat by Pulse 98 Oximetry 08/07/21 08/07/21 08/07/21 21:54 21:55 21:57 Temperature Pulse Rate 106 H 106 H 106 H Respiratory Rate Blood Pressure 95/55 92/52 O2 Sat by Pulse 96 94 Oximetry 08/07/21 08/07/21 08/07/21 21:59 22:01 22:03 Temperature Pulse Rate 110 H 107 H 112 H Respiratory Rate Blood Pressure 95/52 93/51 97/55 O2 Sat by Pulse 96 Oximetry 08/07/21 08/07/21 08/07/21 22:04 22:05 22:07 Temperature Pulse Rate 114 H 111 H 106 H Respiratory Rate Blood Pressure 99/56 98/57 O2 Sat by Pulse 97 Oximetry 08/07/21 08/07/21 08/07/21 22:09 22:11 22:13 Temperature Pulse Rate 113 H 116 H 117 H Respiratory Rate Blood Pressure 104/63 107/66 116/57 O2 Sat by Pulse 99 Oximetry 08/07/21 08/07/21 08/07/21 22:14 22:15 22:19 Temperature Pulse Rate 121 H 109 H 121 H Respiratory Rate Blood Pressure 124/58 O2 Sat by Pulse 99 98 Oximetry - Exam Breasts: deferred Cardiovascular: Regular rate Lungs: Normal air movement Abdomen: Present: normal appearance, soft, tenderness Vulva: both: normal Uterus: Present: tenderness, fundal height above umbilicus Uterine Contraction Monitor Mode: External Cervical Dilatation: 7.5 Cervical Effacement Percentage: 80 station: 0 - Labs Labs: Abnormal Labs 08/07/21 08/07/21 08/07/21 03:17 14:07 19:16 WBC 11.4 H RDW 12.9 L Lymph % (Auto) 5.1 L Lymph # (Auto) 0.6 L Seg Neutrophils % 87.9 H Seg Neutrophils # 10.0 H Magnesium 5.30 H 4.70 H Urine WBC (Auto) 08/07/21 Unknown WBC RDW Lymph % (Auto) Lymph # (Auto) Seg Neutrophils % Seg Neutrophils # Magnesium Urine WBC (Auto) 138.0 H Laboratory Results - last 24 hr 08/07/21 08/07/21 08/07/21 03:17 03:17 03:17 WBC 11.4 H RBC 3.73 Hgb 11.0 Hct 34.4 MCV 92 MCH 30 MCHC 32 RDW 12.9 L Plt Count 197 Lymph % (Auto) 5.1 L [place] % (Auto) 6.9 Eos % (Auto) 0.0 Baso % (Auto) 0.1 Lymph # (Auto) 0.6 L [place] # (Auto) 0.8 Eos # (Auto) 0.0 Baso # (Auto) 0.0 Seg Neutrophils % 87.9 H Seg Neutrophils # 10.0 H Magnesium Urine Color Urine Turbidity Urine pH Ur Specific [place] Urine Protein Urine Glucose (UA) Urine Ketones Urine Blood Urine Nitrite Urine Bilirubin Urine Urobilinogen Ur Leukocyte Esterase Urine WBC (Auto) Urine RBC (Auto) U Epithel Cells (Auto) Urine Mucus Membranes Rupture Urine Opiates Screen Urine Methadone Screen Ur Barbiturates Screen Ur Phencyclidine Scrn Ur Amphetamines Screen U Benzodiazepines Scrn Urine Cocaine Screen U Marijuana (THC) Screen Drugs of Abuse Note Syphilis IgG Antibody Nonreactive SARS-CoV-2 (PCR) Blood Type O POSITIVE Antibody Screen Negative 08/07/21 08/07/21 08/07/21 04:29 09:40 14:07 WBC RBC Hgb Hct MCV MCH MCHC RDW Plt Count Lymph % (Auto) [place] % (Auto) Eos % (Auto) Baso % (Auto) Lymph # (Auto) [place] # (Auto) Eos # (Auto) Baso # (Auto) Seg Neutrophils % Seg Neutrophils # Magnesium 5.30 H Urine Color Straw Urine Turbidity Clear Urine pH 7.0 Ur Specific [place] 1.005 Urine Protein <15 mg/dl Urine Glucose (UA) Neg Urine Ketones 20 Urine Blood Neg Urine Nitrite Neg Urine Bilirubin Neg Urine Urobilinogen < 2.0 Ur Leukocyte Esterase Neg Urine WBC (Auto) < 1.0 Urine RBC (Auto) < 1.0 U Epithel Cells (Auto) < 1.0 Urine Mucus Few Membranes Rupture Urine Opiates Screen Urine Methadone Screen Ur Barbiturates Screen Ur Phencyclidine Scrn Ur Amphetamines Screen U Benzodiazepines Scrn Urine Cocaine Screen U Marijuana (THC) Screen Drugs of Abuse Note Syphilis IgG Antibody SARS-CoV-2 (PCR) Negative Blood Type Antibody Screen 08/07/21 08/07/21 08/07/21 15:30 19:16 Unknown WBC RBC Hgb Hct MCV MCH MCHC RDW Plt Count Lymph % (Auto) [place] % (Auto) Eos % (Auto) Baso % (Auto) Lymph # (Auto) [place] # (Auto) Eos # (Auto) Baso # (Auto) Seg Neutrophils % Seg Neutrophils # Magnesium 4.70 H Urine Color Yellow Urine Turbidity Slightly-cloudy Urine pH 7.0 Ur Specific [place] 1.008 Urine Protein <15 mg/dl Urine Glucose (UA) Neg Urine Ketones Tr Urine Blood Sm Urine Nitrite Neg Urine Bilirubin Neg Urine Urobilinogen < 2.0 Ur Leukocyte Esterase Lg Urine WBC (Auto) 138.0 H Urine RBC (Auto) 7.0 U Epithel Cells (Auto) 8.0 Urine Mucus Few Membranes Rupture Negative Urine Opiates Screen Urine Methadone Screen Ur Barbiturates Screen Ur Phencyclidine Scrn Ur Amphetamines Screen U Benzodiazepines Scrn Urine Cocaine Screen U Marijuana (THC) Screen Drugs of Abuse Note Syphilis IgG Antibody SARS-CoV-2 (PCR) Blood Type Antibody Screen 08/07/21 Unknown WBC RBC Hgb Hct MCV MCH MCHC RDW Plt Count Lymph % (Auto) [place] % (Auto) Eos % (Auto) Baso % (Auto) Lymph # (Auto) [place] # (Auto) Eos # (Auto) Baso # (Auto) Seg Neutrophils % Seg Neutrophils # Magnesium Urine Color Urine Turbidity Urine pH Ur Specific [place] Urine Protein Urine Glucose (UA) Urine Ketones Urine Blood Urine Nitrite Urine Bilirubin Urine Urobilinogen Ur Leukocyte Esterase Urine WBC (Auto) Urine RBC (Auto) U Epithel Cells (Auto) Urine Mucus Membranes Rupture Urine Opiates Screen Negative Urine Methadone Screen Negative Ur Barbiturates Screen Negative Ur Phencyclidine Scrn Negative Ur Amphetamines Screen Negative U Benzodiazepines Scrn Negative Urine Cocaine Screen Negative U Marijuana (THC) Screen Negative Drugs of Abuse Note Disclamer Syphilis IgG Antibody SARS-CoV-2 (PCR) Blood Type Antibody Screen
[2021-08-07] MEDS ORDERED: OXYTOCIN DRIP 30 UNITS/500 ML BAG IV SCH (23:45)
[2021-08-08] MEDS ORDERED: miSOPROStol 200 MCG TAB ONE (00:14)
[2021-08-08] MEDS ORDERED: METHYLERGONOVINE MALEATE 0.2 MG/ML VIAL IM ONE (00:15)
[2021-08-08] MEDS ORDERED: OXYTOCIN 10 UNIT/1 ML INJ ONE (00:17)
--- NOTE | 2021-08-08 00:46 | Procedure Note ---
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 Braswell present for delivery) Estimated blood loss: 200cc - Vaginal Delivery presentation: vertex Delivery position: OA (KATHIA) Intrapartum events: labor-<37 weeks, PROM->1hr before delivery, foul smelling fluid Delivery induction: none Delivery monitor: external FHT, external uterine Route of delivery: Delivery placenta: spontaneous Delivery cord: nuchal cord, 3 umbilical vessels Episiotomy: none Delivery laceration: none Anesthesia: epidural Delivery comments: pt birthed female over intact perineum, cord around neck - baby somersaulted though and placed on mother's thigh for 30 seconds of delayed cord clamping per betty and NICU team. Baby with grimace and cry immediately after delivery. 3 vessel cord clamped and cut, cord blood collected. Placenta delivered intact and complete - sent to pathology. EBL 200, apgars 2/4/9, wt 950gm. to nicu, mother remained LDR stable. All counts correct. - A at 1 minute: 2 at 5 minutes: 4 Infant Gender: Female (950gm, 10 minutes 9)
[2021-08-08] MEDS ORDERED: MAGNESIUM HYDROXIDE (MOM) ORAL LIQD UDC PO PRN (00:54)
[2021-08-08] MEDS ORDERED: LANOLIN/ZINC/DIMETHICONE (LANSINOH) 7 GM TP PRN (00:54)
[2021-08-08] MEDS ORDERED: WITCH HAZEL/ GLYCERIN PAD TP PRN (00:54)
[2021-08-08] MEDS ORDERED: diphenhydrAMINE 25 MG CAP PO PRN (00:54)
[2021-08-08] MEDS ORDERED: PROMETHAZINE 25 MG TAB PO PRN (00:54)
[2021-08-08] MEDS ORDERED: ONDANSETRON 4 MG/2 ML INJ IV PRN (00:54)
[2021-08-08] MEDS ORDERED: KETOROLAC 30 MG/1 ML INJ IV PRN (00:54)
[2021-08-08] MEDS ORDERED: IBUPROFEN 600 MG TAB PO STA (01:02)
[2021-08-08] MEDS ORDERED: miSOPROStol 200 MCG TAB PR ONE (01:07)
[2021-08-08] MEDS: IBUPROFEN 600 MG TAB PO SCH ×2 (05:15→11:38)
[2021-08-08] MEDS ORDERED: PRENATAL VIT27-FE FUMARATE-FOLIC ACID VIT TAB PO SCH (10:00)
--- NOTE | 2021-08-08 11:47 | Post Anesthesia Evaluation ---
- Post Anesthesia Evaluation Patient Participated: Yes Airway Patent: Yes Stable Respiratory Function: Yes Nausea/Vomiting: No Temp > 96.8F: Yes Pain Manageable: Yes Adequeate Hydration: Yes Anesthesia Complications: No Block Receding Appropriately: Yes Patient on Ventilator: No
[2021-08-08] MEDS ORDERED: IBUPROFEN 600 MG TAB PO SCH (13:36)
--- NOTE | 2021-08-08 13:45 | Progress Note ---
Assessment and Plan A: 25 y.o. s/p , , . P: Continue with care. Will straight cath patient if she continues to have difficulty urinating. - RN will call provider if difficulty continues. - Will bladder scan patient after voiding. Subjective - Subjective Date of service: 08/08/21 Principal diagnosis: s/p , delivery, ~13 hrs Interval history: Pt states that she is having some difficulty voiding. States that she voided earlier this AM and has felt as though she is not emptying her bladder fully, and feels dehydrated. Discussed sitting on toilet for a longer period of time, increasing water intake, walking around to assist with urination. If these interventions don't work she will need to be straight cathed. Patient reports: appetite normal, pain well controlled, ambulating normally, other (Having difficulty with urination. ) Stephens: doing well, in NICU Objective - Vital Signs Latest vital signs: Vital Signs Temp Pulse Resp BP BP Pulse Ox Pulse Ox 08/08/21 11:40 98.3 F 93 H 18 122/69 97 08/08/21 08:32 98.0 F 88 18 104/69 97 08/08/21 08:20 98 08/08/21 05:15 18 08/08/21 02:40 98.3 F 99 H 18 127/75 99 08/08/21 02:20 99 08/08/21 01:49 108 H 99 08/08/21 01:46 102 H 113/71 08/08/21 01:44 103 H 97 08/08/21 01:39 102 H 98 08/08/21 01:34 107 H 97 08/08/21 01:31 109 H 117/75 08/08/21 01:29 107 H 99 08/08/21 01:24 99 H 99 08/08/21 01:19 105 H 20 97 08/08/21 01:16 111 H 105/61 08/08/21 01:14 101 H 99 08/08/21 01:09 104 H 99 08/08/21 01:04 106 H 99 08/08/21 01:01 100 H 118/63 08/08/21 00:59 103 H 99 08/08/21 00:54 106 H 99 08/08/21 00:49 108 H 99 08/08/21 00:46 103 H 104/52 08/08/21 00:44 100 H 98 08/08/21 00:39 108 H 99 08/08/21 00:34 108 H 98 08/08/21 00:31 109 H 117/65 08/08/21 00:29 111 H 98 08/08/21 00:24 111 H 98 08/08/21 00:19 114 H 99 08/08/21 00:14 113 H 99 08/08/21 00:09 112 H 100 08/08/21 00:04 115 H 99 08/07/21 23:59 116 H 99 08/07/21 23:54 115 H 99 08/07/21 23:49 105 H 97 08/07/21 23:46 100 H 109/58 08/07/21 23:44 102 H 98 08/07/21 23:39 108 H 97 08/07/21 23:34 109 H 99 08/07/21 23:31 104 H 118/62 08/07/21 23:29 106 H 97 08/07/21 23:24 110 H 97 08/07/21 23:19 106 H 98 08/07/21 23:16 103 H 110/66 08/07/21 23:14 107 H 98 08/07/21 23:09 110 H 98 08/07/21 23:04 111 H 98 08/07/21 23:01 108 H 90/50 08/07/21 22:59 108 H 98 08/07/21 22:54 108 H 94 08/07/21 22:49 98.9 F 109 H 98 08/07/21 22:46 107 H 101/55 08/07/21 22:44 110 H 98 08/07/21 22:39 105 H 99 08/07/21 22:34 109 H 99 08/07/21 22:31 110 H 108/55 08/07/21 22:29 111 H 99 08/07/21 22:24 121 H 96 08/07/21 22:19 121 H 98 08/07/21 22:15 109 H 124/58 08/07/21 22:14 121 H 99 08/07/21 22:13 117 H 116/57 08/07/21 22:11 116 H 107/66 08/07/21 22:09 113 H 104/63 99 08/07/21 22:07 106 H 98/57 08/07/21 22:05 111 H 99/56 08/07/21 22:04 114 H 97 08/07/21 22:03 112 H 97/55 08/07/21 22:01 107 H 93/51 08/07/21 21:59 110 H 95/52 96 08/07/21 21:57 106 H 92/52 08/07/21 21:55 106 H 95/55 94 08/07/21 21:54 106 H 96 08/07/21 21:53 106 H 91/50 08/07/21 21:51 114 H 98/55 08/07/21 21:49 114 H 92/51 98 08/07/21 21:47 117 H 101/54 08/07/21 21:45 112 H 104/59 08/07/21 21:44 115 H 97 08/07/21 21:43 115 H 116/68 08/07/21 21:39 132 H 99 08/07/21 21:34 122 H 99 08/07/21 21:29 120 H 100 08/07/21 21:24 110 H 100 08/07/21 21:19 108 H 99 08/07/21 21:14 105 H 99 08/07/21 21:11 107 H 106/56 08/07/21 21:09 106 H 100 08/07/21 21:04 104 H 100 08/07/21 20:59 109 H 99 08/07/21 20:54 111 H 100 20 20:49 108 H 100 08/07/21 20:44 114 H 99 08/07/21 20:39 112 H 99 08/07/21 20:34 111 H 99 08/07/21 20:29 113 H 100 08/07/21 20:24 106 H 100 2022 20:19 108 H 100 2022 20:14 109 H 99 20 20:11 108 H 122/67 08/07/21 20:09 107 H 73 L 08/07/21 20:04 107 H 98 08/07/21 19:59 108 H 99 08/07/21 19:54 99 H 98 08/07/21 19:49 98 H 98 08/07/21 19:44 100 H 98 08/07/21 19:39 102 H 98 08/07/21 19:34 101 H 99 08/07/21 19:29 106 H 98 08/07/21 19:24 104 H 99 08/07/21 19:22 107 H 83 L 08/07/21 19:19 102 H 100 08/07/21 19:14 103 H 97 08/07/21 19:11 104 H 101/60 08/07/21 19:08 109 H 97 08/07/21 19:04 106 H 98 08/07/21 18:59 103 H 99 08/07/21 18:54 106 H 100 08/07/21 18:49 104 H 100 08/07/21 18:44 109 H 99 08/07/21 18:39 109 H 100 08/07/21 18:33 107 H 99 08/07/21 18:29 106 H 99 08/07/21 18:24 108 H 100 08/07/21 18:19 107 H 98 08/07/21 18:14 107 H 100 08/07/21 18:11 106 H 117/60 08/07/21 18:09 108 H 99 08/07/21 18:04 107 H 119/69 99 08/07/21 17:59 106 H 99 08/07/21 17:54 110 H 99 08/07/21 17:49 117 H 99 08/07/21 17:44 121 H 100 08/07/21 17:39 119 H 99 08/07/21 17:34 106 H 99 08/07/21 17:29 109 H 100 08/07/21 17:28 79 91 08/07/21 17:23 102 H 99 08/07/21 17:18 112 H 100 08/07/21 17:13 104 H 98 08/07/21 17:08 105 H 99 08/07/21 17:03 100 H 100 08/07/21 16:58 102 H 99 08/07/21 16:53 107 H 100 08/07/21 16:48 104 H 100 08/07/21 16:43 112 H 99 08/07/21 16:38 106 H 99 08/07/21 16:33 99 H 100 08/07/21 16:28 104 H 99 08/07/21 16:23 104 H 100 08/07/21 16:18 97 H 100 08/07/21 16:13 99 H 98 08/07/21 16:08 105 H 100 08/07/21 16:03 107 H 98 08/07/21 15:58 107 H 98 08/07/21 15:53 104 H 98 08/07/21 15:50 98.5 F 20 08/07/21 15:48 102 H 97 08/07/21 15:43 98 H 99 08/07/21 15:38 103 H 99 08/07/21 15:33 102 H 99 08/07/21 15:28 94 H 99 08/07/21 15:23 100 H 98 08/07/21 15:18 94 H 97 08/07/21 15:13 97 H 97 08/07/21 15:11 95 H 114/73 08/07/21 15:08 93 H 99 08/07/21 15:03 92 H 99 08/07/21 14:58 95 H 98 08/07/21 14:53 95 H 99 08/07/21 14:48 97 H 99 08/07/21 14:43 91 H 99 08/07/21 14:38 97 H 98 08/07/21 14:33 92 H 98 08/07/21 14:28 91 H 98 08/07/21 14:23 91 H 97 08/07/21 14:18 88 97 08/07/21 14:13 93 H 99 08/07/21 14:11 93 H 118/84 08/07/21 14:08 95 H 98 08/07/21 14:03 89 96 08/07/21 13:58 94 H 96 08/07/21 13:53 90 97 08/07/21 13:48 94 H 97 08/07/21 13:43 92 H 94 08/07/21 13:42 92 H 98 Intake and Output 08/07/21 08/08/21 08/08/21 22:59 06:59 14:59 Intake Total 130 600 Output Total 1400 1200 Balance -1270 -1200 600 Intake: IV 130 AMPICILLIN/NS 2 GM/100 ML 100 2 gm In 100 ml @ 100 mls /hr IV Q6H [facility] Rx#: [id number] Gentamicin/Ns 80 mg/100 30 ml 100 ml @ 200 mls/hr IV [facility] Rx#: [id number] Oral 600 Output: Urine 1400 1200 Indwelling Catheter 1400 1200 Other: Total, Intake Amount 360 Total, Output Amount 1400 1200 # Voids Void 1 Estimated Blood Loss 200 - Exam Cardiovascular: Present: Regular rate Lungs: Present: Normal air movement Abdomen: Present: normal appearance, soft Vulva: both: normal Uterus: Present: normal, firm, other (Light Lochia) - Labs Labs: Abnormal lab results 08/07/21 08/07/21 Range/Units 14:07 19:16 Magnesium 5.30 H 4.70 H (1.7-2.3) mg/dL
[2021-08-08] MEDS: ACETAMINOPHEN 500 MG TAB PO PRN ×2 (14:31→20:00)
[2021-08-08] MEDS: IBUPROFEN 800 MG TAB PO SCH (17:09)
--- NOTE | 2021-08-08 18:38 | Event Note ---
Date: 08/08/21 Spoke with RN taking care of patient and she states that patient voided 300ml, had a bladder scan showed a residual of 257ml. After scan patient voided another 100ml. Bladder scan and void WNL.
[2021-08-08 18:42] LABS: Hematocrit 33.5 % (30.3-42.9); Hemoglobin 10.6 gm/dl (10.1-14.3)
[2021-08-09] MEDS ORDERED: TETANUS,DIPH,PERTUSS(ACELL) VACCINE 0.5 ML SYRINGE IM ONE (00:36)
[2021-08-09] MEDS: IBUPROFEN 800 MG TAB PO SCH (02:54)
--- NOTE | 2021-08-09 06:24 | Discharge Summary ---
Providers - Providers Date of Admission: 08/07/21 01:14 Date of discharge: 08/09/21 Attending physician: DEBBIE HERNANDES 08/08/21 00:54 Consult to Patient Financial Services Specialist [CONS] Routine Reason For Exam: assistance with , SNS Primary care physician: MORRIS CONKLIN MD Hospitalization Reason for admission: labor Delivery: Episiotomy: none Laceration: none Other procedures: none complications: none Discharge diagnosis: delivery [place] baby: female Pertinent studies: Pt had some difficulty urinating on 08/08, but has since voided an adequate amount of urine. Hospital course: S: Pt doing well. Voiding, ambulating, and passing flatus. BC: Pills. O: VSS. Adequate I&O's. Fundus firm, minimal bleeding noted. H/H 10.6/33.5. A: 25 y.o. s/p . In good condition . P: Discharge home with instructions. Pt to schedule a visit in the office in 4 weeks. Condition at discharge: Good Disposition: 01 HOME / SELF CARE / HOMELESS Plan - Provider Discharge Summary Activity: routine, no sex for 6 weeks, no heavy lifting 4 weeks, no strenuous exercise Diet: routine Instructions: routine Additional instructions: [] Smoking cessation referral if applicable(refer to patient education folder for contact #) [] Refer to [facility] Booklet Call your doctor immediately for: * Fever > 100.5 * Heavy vaginal bleeding ( >1 pad per hour) * Severe persistent headache * Shortness of breath * Reddened, hot, painful area to leg or breast Congratulations on your baby girl. Hopefully she continues to do well while in the baby ICU. Please schedule an appointment in the office for a visit in 4 weeks. Should you have any questions or concerns after discharge, please do not hesitate to call the office at [phone]. - Follow up plan Follow up: MORRIS CONKLIN MD [Primary Care Provider] - 7 Days
[2021-08-09 17:06] VITALS: BP 110/73
== END 2021-08-09 17:40 | disposition home or self-care (01) | DRG 775 ==
LOC: TRG 19:46 → APU 19:47 → TRG 08-07 01:13 → LD 08-07 01:14 → OB 08-08 03:01
PROVIDERS: ADMIT Obstetrics & Gynecology; ATTEND Obstetrics & Gynecology
PROC: 10E0XZZ Delivery of Products of Conception, External Approach (ICD-10-PCS; principal; 2021-08-08)
PROC: 3E0R3BZ Introduction of Anesthetic Agent into Spinal Canal, Percutaneous Approach (ICD-10-PCS; 2021-08-08)
PROC: 10907ZC Drainage of Amniotic Fluid, Therapeutic from Products of Conception, Via Natural or Artificial Opening (ICD-10-PCS; 2021-08-08)
PROC: 00HU33Z Insertion of Infusion Device into Spinal Canal, Percutaneous Approach (ICD-10-PCS; 2021-08-08)
PROC: 3E0234Z Introduction of Serum, Toxoid and Vaccine into Muscle, Percutaneous Approach (ICD-10-PCS; 2021-08-09)
DX: O42.012 Preterm premature rupture of membranes, onset of labor within 24 hours of rupture, second trimester (principal); Z3A.27 27 weeks gestation of pregnancy; O60.12X0 Preterm labor second trimester with preterm delivery second trimester, not applicable or unspecified; O99.62 Diseases of the digestive system complicating childbirth; O99.214 Obesity complicating childbirth; O41.1220 Chorioamnionitis, second trimester, not applicable or unspecified; O69.81X0 Labor and delivery complicated by cord around neck, without compression, not applicable or unspecified; Z37.0 Single live birth; Z23 Encounter for immunization
CPT/HCPCS: 36415; 76815; 76816; 80307; 81001; 83735; 84112; 85014; 85018; 85025; 86592; 86850; 86900; 86901; 87086; 87116; 87210; 87591; 88305; 96361; 96369; G0378; J7502; J0290; J0702; J1580; J2300; J2590; J3105; J3475; J7120; U0003

== ENCOUNTER 2021-08-12 14:51 | Emergency (ER) | payer OTHER ==
--- NOTE | 2021-08-12 15:32 | Emergency Department Report ---
ED General Adult HPI - General Chief complaint: Extremity Problem,Nontraumatic Stated complaint: CLOTTING Time Seen by Provider: 08/12/21 15:21 Source: patient Mode of arrival: Ambulatory Limitations: No Limitations - History of Present Illness Initial comments: Patient is a 25-year-old female presents emergency room with complaints of bilateral calf pain that began yesterday. She states that she feels a cramping sensation in her legs. She states that she is also been experiencing some chest pain and mild shortness of breath. She denies any fever, cough, nausea, vomiting, diarrhea, hemoptysis. Patient had recent vaginal delivery by Dr. Braswell on 08/08/2021 she was 27 weeks gestation, her baby is currently in the NICU, she denies any other complications. No allergies to medications. She states this is her first . Severity scale (0 -10): 8 - Related Data Previous Rx's Medication Instructions Recorded Last Taken Type Naproxen [Naprosyn TAB] 500 mg PO BID #30 tablet 04/09/14 Unknown Rx Ibuprofen [Motrin 600 MG tab] 600 mg PO Q8H PRN #20 tablet 03/31/16 Unknown Rx Fluconazole (Nf) [Diflucan TAB] 150 mg PO DAILY #2 tablet 10/24/18 Unknown Rx Naproxen 375 mg PO BID PRN #14 tab 08/12/21 Unknown Rx Allergies Allergy/AdvReac Type Severity Reaction Status Date / Time No Known Allergies Allergy Verified 08/12/21 15:03 ED Review of Systems ROS: Stated complaint: CLOTTING Other details as noted in HPI Comment: All other systems reviewed and negative ED Past Medical Hx - Past Medical History Hx Hypertension: No Hx Congestive Heart Failure: No Hx Diabetes: No Hx Deep Vein Thrombosis: No Hx Liver Disease: No Hx Renal Disease: No Hx Sickle Cell Disease: No Hx Seizures: No Hx Asthma: No Hx COPD: No Hx HIV: No - Social History Smoking Status: Former Smoker - Medications Home Medications: Home Medications Medication Instructions Recorded Confirmed Last Taken Type Naproxen [Naprosyn TAB] 500 mg PO BID #30 tablet 04/09/14 Unknown Rx Ibuprofen [Motrin 600 MG tab] 600 mg PO Q8H PRN #20 tablet 03/31/16 Unknown Rx Fluconazole (Nf) [Diflucan TAB] 150 mg PO DAILY #2 tablet 10/24/18 Unknown Rx Naproxen 375 mg PO BID PRN #14 tab 08/12/21 Unknown Rx ED Physical Exam - General Limitations: No Limitations General appearance: alert, in no apparent distress - Head Head exam: Present: atraumatic, normocephalic - Eye Eye exam: Present: normal appearance - ENT ENT exam: Present: mucous membranes moist - Respiratory Respiratory exam: Present: normal lung sounds bilaterally. Absent: respiratory distress, wheezes, rales, rhonchi, stridor, chest wall tenderness, accessory muscle use, decreased breath sounds, prolonged expiratory - Cardiovascular Cardiovascular Exam: Present: regular rate, normal rhythm, normal heart sounds. Absent: systolic murmur, diastolic murmur, rubs, gallop - GI/Abdominal GI/Abdominal exam: Present: soft, normal bowel sounds. Absent: distended, tenderness, guarding, rebound, rigid - Extremities Exam Extremities exam: Present: calf tenderness, other (mild calf ttp bilaterally, FROM, no edema, no skin changes, neurovascularly intact). Absent: pedal edema, joint swelling - Neurological Exam Neurological exam: Present: alert, oriented X3 - Psychiatric Psychiatric exam: Present: normal affect, normal mood - Skin Skin exam: Present: warm, dry, intact ED Course Vital Signs 08/12/21 08/12/21 15:01 19:58 Temperature 99.6 F Pulse Rate 114 H 86 Respiratory 14 20 Rate Blood Pressure 135/74 119/68 [Left] O2 Sat by Pulse 100 98 Oximetry ED Medical Decision Making - Lab Data Result diagrams: 08/12/21 16:10 08/12/21 16:10 Lab Results 08/12/21 08/12/21 08/12/21 Range/Units 16:10 16:10 16:10 WBC 8.1 (4.5-11.0) K/mm3 RBC 4.76 (3.65-5.03) M/mm3 Hgb 13.6 (10.1-14.3) gm/dl Hct 43.6 H (30.3-42.9) % MCV 92 (79-97) fl MCH 29 (28-32) pg MCHC 31 (30-34) % RDW 12.9 L (13.2-15.2) % Plt Count 298 (140-440) K/mm3 Add Manual Diff Complete Total Counted 100 Seg Neuts % (Manual) 71.0 H (40.0-70.0) % Band Neutrophils % 0 % Lymphocytes % (Manual) 21.0 (13.4-35.0) % Reactive Lymphs % (Man) 0 % Monocytes % (Manual) 8.0 H (0.0-7.3) % Eosinophils % (Manual) 0 (0.0-4.3) % Basophils % (Manual) 0 (0.0-1.8) % Metamyelocytes % 0 % Myelocytes % 0 % Promyelocytes % 0 % Blast Cells % 0 % Nucleated RBC % Not Reportable Seg Neutrophils # Man 5.8 (1.8-7.7) K/mm3 Band Neutrophils # 0.0 K/mm3 Lymphocytes # (Manual) 1.7 (1.2-5.4) K/mm3 Abs React Lymphs (Man) 0.0 K/mm3 Monocytes # (Manual) 0.6 (0.0-0.8) K/mm3 Eosinophils # (Manual) 0.0 (0.0-0.4) K/mm3 Basophils # (Manual) 0.0 (0.0-0.1) K/mm3 Metamyelocytes # 0.0 K/mm3 Myelocytes # 0.0 K/mm3 Promyelocytes # 0.0 K/mm3 Blast Cells # 0.0 K/mm3 WBC Morphology Not Reportable Hypersegmented Neuts Not Reportable Hyposegmented Neuts Not Reportable Hypogranular Neuts Not Reportable Smudge Cells Not Reportable Toxic Granulation Not Reportable Toxic Vacuolation Not Reportable Dohle Bodies Not Reportable Pelger-Huet Anomaly Not Reportable Marii Rods Not Reportable Platelet Estimate Consistent w auto Clumped Platelets Not Reportable Plt Clumps, EDTA Not Reportable Large Platelets Few Giant Platelets Not Reportable Platelet Satelliting Not Reportable Plt Morphology Comment Not Reportable RBC Morphology Normal Dimorphic RBCs Not Reportable Polychromasia Not Reportable Hypochromasia Not Reportable Poikilocytosis Not Reportable Anisocytosis Not Reportable Microcytosis Not Reportable Macrocytosis Not Reportable Spherocytes Not Reportable Pappenheimer Bodies Not Reportable Sickle Cells Not Reportable Target Cells Not Reportable Tear Drop Cells Not Reportable Ovalocytes Not Reportable Helmet Cells Not Reportable Patton-Cabazon Bodies Not Reportable [place] Rings Not Reportable Guilherme Cells Not Reportable Bite Cells Not Reportable Crenated Cell Not Reportable Elliptocytes Not Reportable Acanthocytes (Spur) Not Reportable Rouleaux Not Reportable Hemoglobin C Crystals Not Reportable Schistocytes Not Reportable Malaria parasites Not Reportable Petar Bodies Not Reportable Hem Pathologist Commnt No Sodium 138 (137-145) mmol/L Potassium 4.2 (3.6-5.0) mmol/L Chloride 100.2 (98-107) mmol/L Carbon Dioxide 24 (22-30) mmol/L Anion Gap 18 mmol/L BUN 15 (7-17) mg/dL Creatinine 0.8 (0.6-1.2) mg/dL Estimated GFR > 60 ml/min BUN/Creatinine Ratio 19 % Glucose 88 (65-100) mg/dL Calcium 9.5 (8.4-10.2) mg/dL Total Bilirubin 0.20 (0.1-1.2) mg/dL AST 10 (5-40) units/L ALT 15 (7-56) units/L Alkaline Phosphatase 60 (35-129) units/L Troponin T < 0.010 (0.00-0.029) ng/mL NT-Pro-B Natriuret Pep 35.66 (0-450) pg/mL Total Protein 6.9 (6.3-8.2) g/dL Albumin 4.1 (3.9-5) g/dL Albumin/Globulin Ratio 1.5 % 08/12/21 Range/Units 18:10 WBC (4.5-11.0) K/mm3 RBC (3.65-5.03) M/mm3 Hgb (10.1-14.3) gm/dl Hct (30.3-42.9) % MCV (79-97) fl MCH (28-32) pg MCHC (30-34) % RDW (13.2-15.2) % Plt Count (140-440) K/mm3 Add Manual Diff Total Counted Seg Neuts % (Manual) (40.0-70.0) % Band Neutrophils % % Lymphocytes % (Manual) (13.4-35.0) % Reactive Lymphs % (Man) % Monocytes % (Manual) (0.0-7.3) % Eosinophils % (Manual) (0.0-4.3) % Basophils % (Manual) (0.0-1.8) % Metamyelocytes % % Myelocytes % % Promyelocytes % % Blast Cells % % Nucleated RBC % Seg Neutrophils # Man (1.8-7.7) K/mm3 Band Neutrophils # K/mm3 Lymphocytes # (Manual) (1.2-5.4) K/mm3 Abs React Lymphs (Man) K/mm3 Monocytes # (Manual) (0.0-0.8) K/mm3 Eosinophils # (Manual) (0.0-0.4) K/mm3 Basophils # (Manual) (0.0-0.1) K/mm3 Metamyelocytes # K/mm3 Myelocytes # K/mm3 Promyelocytes # K/mm3 Blast Cells # K/mm3 WBC Morphology Hypersegmented Neuts Hyposegmented Neuts Hypogranular Neuts Smudge Cells Toxic Granulation Toxic Vacuolation Dohle Bodies Pelger-Huet Anomaly Marii Rods Platelet Estimate Clumped Platelets Plt Clumps, EDTA Large Platelets Giant Platelets Platelet Satelliting Plt Morphology Comment RBC Morphology Dimorphic RBCs Polychromasia Hypochromasia Poikilocytosis Anisocytosis Microcytosis Macrocytosis Spherocytes Pappenheimer Bodies Sickle Cells Target Cells Tear Drop Cells Ovalocytes Helmet Cells Patton-Cabazon Bodies [place] Rings Bartlett Cells Bite Cells Crenated Cell Elliptocytes Acanthocytes (Spur) Rouleaux Hemoglobin C Crystals Schistocytes Malaria parasites Petar Bodies Hem Pathologist Commnt Sodium (137-145) mmol/L Potassium (3.6-5.0) mmol/L Chloride (98-107) mmol/L Carbon Dioxide (22-30) mmol/L Anion Gap mmol/L BUN (7-17) mg/dL Creatinine (0.6-1.2) mg/dL Estimated GFR ml/min BUN/Creatinine Ratio % Glucose (65-100) mg/dL Calcium (8.4-10.2) mg/dL Total Bilirubin (0.1-1.2) mg/dL AST (5-40) units/L ALT (7-56) units/L Alkaline Phosphatase (35-129) units/L Troponin T < 0.010 (0.00-0.029) ng/mL NT-Pro-B Natriuret Pep (0-450) pg/mL Total Protein (6.3-8.2) g/dL Albumin (3.9-5) g/dL Albumin/Globulin Ratio % Vital Signs 08/12/21 08/12/21 15:01 19:58 Temperature 99.6 F Pulse Rate 114 H 86 Respiratory 14 20 Rate Blood Pressure 135/74 119/68 [Left] O2 Sat by Pulse 100 98 Oximetry Lab Results 08/12/21 08/12/21 08/12/21 Range/Units 16:10 16:10 16:10 WBC 8.1 (4.5-11.0) K/mm3 RBC 4.76 (3.65-5.03) M/mm3 Hgb 13.6 (10.1-14.3) gm/dl Hct 43.6 H (30.3-42.9) % MCV 92 (79-97) fl MCH 29 (28-32) pg MCHC 31 (30-34) % RDW 12.9 L (13.2-15.2) % Plt Count 298 (140-440) K/mm3 Add Manual Diff Complete Total Counted 100 Seg Neuts % (Manual) 71.0 H (40.0-70.0) % Band Neutrophils % 0 % Lymphocytes % (Manual) 21.0 (13.4-35.0) % Reactive Lymphs % (Man) 0 % Monocytes % (Manual) 8.0 H (0.0-7.3) % Eosinophils % (Manual) 0 (0.0-4.3) % Basophils % (Manual) 0 (0.0-1.8) % Metamyelocytes % 0 % Myelocytes % 0 % Promyelocytes % 0 % Blast Cells % 0 % Nucleated RBC % Not Reportable Seg Neutrophils # Man 5.8 (1.8-7.7) K/mm3 Band Neutrophils # 0.0 K/mm3 Lymphocytes # (Manual) 1.7 (1.2-5.4) K/mm3 Abs React Lymphs (Man) 0.0 K/mm3 Monocytes # (Manual) 0.6 (0.0-0.8) K/mm3 Eosinophils # (Manual) 0.0 (0.0-0.4) K/mm3 Basophils # (Manual) 0.0 (0.0-0.1) K/mm3 Metamyelocytes # 0.0 K/mm3 Myelocytes # 0.0 K/mm3 Promyelocytes # 0.0 K/mm3 Blast Cells # 0.0 K/mm3 WBC Morphology Not Reportable Hypersegmented Neuts Not Reportable Hyposegmented Neuts Not Reportable Hypogranular Neuts Not Reportable Smudge Cells Not Reportable Toxic Granulation Not Reportable Toxic Vacuolation Not Reportable Dohle Bodies Not Reportable Pelger-Huet Anomaly Not Reportable Marii Rods Not Reportable Platelet Estimate Consistent w auto Clumped Platelets Not Reportable Plt Clumps, EDTA Not Reportable Large Platelets Few Giant Platelets Not Reportable Platelet Satelliting Not Reportable Plt Morphology Comment Not Reportable RBC Morphology Normal Dimorphic RBCs Not Reportable Polychromasia Not Reportable Hypochromasia Not Reportable Poikilocytosis Not Reportable Anisocytosis Not Reportable Microcytosis Not Reportable Macrocytosis Not Reportable Spherocytes Not Reportable Pappenheimer Bodies Not Reportable Sickle Cells Not Reportable Target Cells Not Reportable Tear Drop Cells Not Reportable Ovalocytes Not Reportable Helmet Cells Not Reportable Patton-Cabazon Bodies Not Reportable [place] Rings Not Reportable [place] Cells Not Reportable Bite Cells Not Reportable Crenated Cell Not Reportable Elliptocytes Not Reportable Acanthocytes (Spur) Not Reportable Rouleaux Not Reportable Hemoglobin C Crystals Not Reportable Schistocytes Not Reportable Malaria parasites Not Reportable Petar Bodies Not Reportable Hem Pathologist Commnt No Sodium 138 (137-145) mmol/L Potassium 4.2 (3.6-5.0) mmol/L Chloride 100.2 (98-107) mmol/L Carbon Dioxide 24 (22-30) mmol/L Anion Gap 18 mmol/L BUN 15 (7-17) mg/dL Creatinine 0.8 (0.6-1.2) mg/dL Estimated GFR > 60 ml/min BUN/Creatinine Ratio 19 % Glucose 88 (65-100) mg/dL Calcium 9.5 (8.4-10.2) mg/dL Total Bilirubin 0.20 (0.1-1.2) mg/dL AST 10 (5-40) units/L ALT 15 (7-56) units/L Alkaline Phosphatase 60 (35-129) units/L Troponin T < 0.010 (0.00-0.029) ng/mL NT-Pro-B Natriuret Pep 35.66 (0-450) pg/mL Total Protein 6.9 (6.3-8.2) g/dL Albumin 4.1 (3.9-5) g/dL Albumin/Globulin Ratio 1.5 % Urine Color (Yellow) Urine Turbidity (Clear) Urine pH (5.0-7.0) Ur Specific [place] (1.003-1.030) Urine Protein (Negative) mg/dL Urine Glucose (UA) (Negative) mg/dL Urine Ketones (Negative) mg/dL Urine Blood (Negative) Urine Nitrite (Negative) Urine Bilirubin (Negative) Urine Urobilinogen (<2.0) mg/dL Ur Leukocyte Esterase (Negative) Urine WBC (Auto) (0.0-6.0) /HPF Urine RBC (Auto) (0.0-6.0) /HPF 08/12/21 08/12/21 Range/Units 18:10 Unknown WBC (4.5-11.0) K/mm3 RBC (3.65-5.03) M/mm3 Hgb (10.1-14.3) gm/dl Hct (30.3-42.9) % MCV (79-97) fl MCH (28-32) pg MCHC (30-34) % RDW (13.2-15.2) % Plt Count (140-440) K/mm3 Add Manual Diff Total Counted Seg Neuts % (Manual) (40.0-70.0) % Band Neutrophils % % Lymphocytes % (Manual) (13.4-35.0) % Reactive Lymphs % (Man) % Monocytes % (Manual) (0.0-7.3) % Eosinophils % (Manual) (0.0-4.3) % Basophils % (Manual) (0.0-1.8) % Metamyelocytes % % Myelocytes % % Promyelocytes % % Blast Cells % % Nucleated RBC % Seg Neutrophils # Man (1.8-7.7) K/mm3 Band Neutrophils # K/mm3 Lymphocytes # (Manual) (1.2-5.4) K/mm3 Abs React Lymphs (Man) K/mm3 Monocytes # (Manual) (0.0-0.8) K/mm3 Eosinophils # (Manual) (0.0-0.4) K/mm3 Basophils # (Manual) (0.0-0.1) K/mm3 Metamyelocytes # K/mm3 Myelocytes # K/mm3 Promyelocytes # K/mm3 Blast Cells # K/mm3 WBC Morphology Hypersegmented Neuts Hyposegmented Neuts Hypogranular Neuts Smudge Cells Toxic Granulation Toxic Vacuolation Dohle Bodies Pelger-Huet Anomaly Marii Rods Platelet Estimate Clumped Platelets Plt Clumps, EDTA Large Platelets Giant Platelets Platelet Satelliting Plt Morphology Comment RBC Morphology Dimorphic RBCs Polychromasia Hypochromasia Poikilocytosis Anisocytosis Microcytosis Macrocytosis Spherocytes Pappenheimer Bodies Sickle Cells Target Cells Tear Drop Cells Ovalocytes Helmet Cells Patton-Cabazon Bodies [place] Rings Bartlett Cells Bite Cells Crenated Cell Elliptocytes Acanthocytes (Spur) Rouleaux Hemoglobin C Crystals Schistocytes Malaria parasites Petar Bodies Hem Pathologist Commnt Sodium (137-145) mmol/L Potassium (3.6-5.0) mmol/L Chloride (98-107) mmol/L Carbon Dioxide (22-30) mmol/L Anion Gap mmol/L BUN (7-17) mg/dL Creatinine (0.6-1.2) mg/dL Estimated GFR ml/min BUN/Creatinine Ratio % Glucose (65-100) mg/dL Calcium (8.4-10.2) mg/dL Total Bilirubin (0.1-1.2) mg/dL AST (5-40) units/L ALT (7-56) units/L Alkaline Phosphatase (35-129) units/L Troponin T < 0.010 (0.00-0.029) ng/mL NT-Pro-B Natriuret Pep (0-450) pg/mL Total Protein (6.3-8.2) g/dL Albumin (3.9-5) g/dL Albumin/Globulin Ratio % Urine Color Straw (Yellow) Urine Turbidity Clear (Clear) Urine pH 6.0 (5.0-7.0) Ur Specific [place] 1.054 H (1.003-1.030) Urine Protein <15 mg/dl (Negative) mg/dL Urine Glucose (UA) Neg (Negative) mg/dL Urine Ketones Neg (Negative) mg/dL Urine Blood Mod (Negative) Urine Nitrite Neg (Negative) Urine Bilirubin Neg (Negative) Urine Urobilinogen < 2.0 (<2.0) mg/dL Ur Leukocyte Esterase Neg (Negative) Urine WBC (Auto) < 1.0 (0.0-6.0) /HPF Urine RBC (Auto) < 1.0 (0.0-6.0) /HPF - EKG Data EKG shows normal: sinus rhythm, axis, intervals, QRS complexes, ST-T waves Rate: tachycardia - Radiology Data Radiology results: report reviewed Ordering Physician: TOYA BENITEZ MD Date of Service: 08/12/21 Procedure(s): XR chest routine 2V Accession Number(s): [id number] cc: TOYA BENITEZ MD Fluoro Time In Minutes: CHEST 2 VIEWS INDICATION / CLINICAL INFORMATION: . COMPARISON: None available. FINDINGS: SUPPORT DEVICES: None. HEART / MEDIASTINUM: No significant abnormality. LUNGS / PLEURA: No significant pulmonary or pleural abnormality. No pneumothorax. ADDITIONAL FINDINGS: No significant additional findings. IMPRESSION: 1. No acute findings. Signer Name: Daniel Elder MD Signed: 08/12/2021 3:43 PM Workstation Name: [id number] Transcribed By: SB Dictated By: DANIEL ELDER MD Electronically Authenticated By: DANIEL ELDER MD Signed Date/Time: 08/12/211542 DD/ 42 TD/TT: Ordering Physician: LINDA AL Date of Service: 08/12/21 Procedure(s): VL venous duplex LE BILAT Accession Number(s): [id number] cc: LINDA AL DUPLEX DOPPLER LOWER EXTREMITY VEINS, BILATERAL INDICATION: bilateral calf pain, recent vaginal delivery. TECHNIQUE: Duplex doppler imaging was performed through the veins of both lower extremities using venous compression and other maneuvers. COMPARISON: None available. FINDINGS: Right Common femoral vein: Negative. Right Superficial femoral vein: Negative. Right Popliteal vein: Negative. Right Calf veins: Negative. Left Common femoral vein: Negative. Left Superficial femoral vein: Negative. Left Popliteal vein: Negative. Left Calf veins: Negative. Additional findings: None. IMPRESSION: Negative for DVT. Signer Name: Yannick Miner MD Signed: 08/12/2021 4:00 PM Workstation Name: [id number] Transcribed By: ES Dictated By: Yannick Miner MD Electronically Authenticated By: Yannick Miner MD Signed Date/Time: 08/12/211599 DD/ 1600 TD/TT: Ordering Physician: LINDA AL Date of Service: 08/12/21 Procedure(s): CT angio chest Accession Number(s): [id number] cc: LINDA AL CT angio chest INDICATION / CLINICAL INFORMATION: CP, SOB, recent vaginal delivery. TECHNIQUE: Axial CT images were obtained through the chest after injection of 100 mL of Omnipaque 350 IV contrast. 3 plane MIP and/or 3D reconstructions were produced. All CT scans at this location are performed using CT dose reduction for ALARA by means of automated exposure control. COMPARISON: None available. FINDINGS: PULMONARY ARTERIES: No central or segmental pulmonary embolus. THORACIC AORTA: No significant abnormality. HEART: No significant abnormality. LYMPHADENOPATHY: No significant thoracic lymphadenopathy. LUNGS/PLEURA: No acute airspace disease. No pleural effusion or pneumothorax. OTHER FINDINGS: None. UPPER ABDOMEN: No acute findings. SKELETAL SYSTEM: No acute osseous findings. IMPRESSION: No acute findings in the chest. No evidence of pulmonary embolism. Signer Name: Arturo Mckenna MD Signed: 08/12/2021 6:36 PM Workstation Name: [id number] Transcribed By: SHANE Dictated By: ARTURO MCKENNA MD Electronically Authenticated By: ARTURO MCKENNA MD Signed Date/Time: 08/12/211835 DD/ 34 TD/TT: - Medical Decision Making Patient is a 25-year-old female presents emergency room with complaints of bilateral calf pain that began yesterday. She states that she feels a cramping sensation in her legs. She states that she is also been experiencing some chest pain and mild shortness of breath. She denies any fever, cough, nausea, vomiting, diarrhea, hemoptysis. Patient had recent vaginal delivery by Dr. Braswell on 08/08/2021 she was 27 weeks gestation, her baby is currently in the NICU, she denies any other complications. No allergies to medications. She states this is her first . Vitals with tachycardia, otherwise normal which improved upon repeat, blood pressure is normal. Labs are normal. Normal renal function. Troponin is negative x2. Normal BNP. no proteinuria. Chest x-ray 1. No acute findings. Doppler ultrasound left lower extremity IMPRESSION: Negative for DVT. CT angio chest No acute findings in the chest. No evidence of pulmonary embolism. Discussed all findings with patient. Will have patient follow-up with outpatient primary care. Discussed return precautions. Advised patient please take medication as prescribed as needed. Follow-up with a primary care doctor. Return to emergency room for any new or worsening symptoms. Critical care attestation.: If time is entered above; I have spent that time in minutes in the direct care of this critically ill patient, excluding procedure time. ED Disposition Clinical Impression: Pain of left calf, SOB (shortness of breath) Chest pain Qualifiers: Chest pain type: unspecified Qualified Code(s): R07.9 - Chest pain, unspecified Disposition: HOME / SELF CARE / HOMELESS Is pt being admited?: No Does the pt Need Aspirin: No Condition: Stable Instructions: Nonspecific Chest Pain, Adult Additional Instructions: please take medication as prescribed as needed. Follow-up with a primary care doctor. Return to emergency room for any new or worsening symptoms. Prescriptions: Naproxen 375 mg PO BID PRN #14 tab PRN Reason: pain Referrals: KISHORE MEIER MD [Primary Care Provider] - 3-5 Days CUCO CHILD MD [Staff Physician] - 3-5 Days [facility] [Provider Group] - 3-5 Days Time of Disposition: 19:19 Print Language: MALAWIAN
--- NOTE | 2021-08-12 15:48 | XRay Report ---
CHEST 2 VIEWS INDICATION / CLINICAL INFORMATION: . COMPARISON: None available. FINDINGS: SUPPORT DEVICES: None. HEART / MEDIASTINUM: No significant abnormality. LUNGS / PLEURA: No significant pulmonary or pleural abnormality. No pneumothorax. ADDITIONAL FINDINGS: No significant additional findings. IMPRESSION: 1. No acute findings. Signer Name: Daniel Elder MD Signed: 08/12/2021 3:43 PM Workstation Name: [id number]
--- NOTE | 2021-08-12 16:04 | Vascular Lab Report ---
DUPLEX DOPPLER LOWER EXTREMITY VEINS, BILATERAL INDICATION: bilateral calf pain, recent vaginal delivery. TECHNIQUE: Duplex doppler imaging was performed through the veins of both lower extremities using venous nick casimiro and other maneuvers. COMPARISON: None available. FINDINGS: Right Common femoral vein: Negative. Right Superficial femoral vein: Negative. Right Popliteal vein: Negative. Right Calf veins: Negative. Left Common femoral vein: Negative. Left Superficial femoral vein: Negative. Left Popliteal vein: Negative. Left Calf veins: Negative. Additional findings: None. IMPRESSION: Negative for DVT. Signer Name: Yannick Miner MD Signed: 08/12/2021 4:00 PM Workstation Name: [id number]
[2021-08-12 16:46] LABS: Hematocrit 43.6 % (30.3-42.9); Hemoglobin 13.6 gm/dl (10.1-14.3); Mean Corpuscular HGB Conc 31 % (30-34); Mean Corpuscular Volume 92 fl (79-97); Platelet Count 298 K/mm3 (140-440); Red Blood Count 4.76 M/mm3 (3.65-5.03); Red Cell Distribution Width 12.9 % (13.2-15.2)
[2021-08-12 17:09] LABS: Alanine Aminotransferase 15 units/L (7-56); Albumin 4.1 g/dL (3.9-5); BUN/Creatinine Ratio 19; Blood Urea Nitrogen 15 mg/dL (7-17); Calcium 9.5 mg/dL (8.4-10.2); Hemolysis Index 18
[2021-08-12 17:41] LABS: Basophils % (Manual) 0 % (0.0-1.8); Eosinophils % (Manual) 0 % (0.0-4.3); Large Platelets Few; Platelet Estimate Consistent w Auto; RBC Morphology Normal; Total Cells Counted 100
--- NOTE | 2021-08-12 19:05 | Cat Scan Report ---
CT angio chest INDICATION / CLINICAL INFORMATION: CP, SOB, recent vaginal delivery. TECHNIQUE: Axial CT images were obtained through the chest after injection of 100 mL of Omnipaque 350 IV contrast. 3 plane MIP and/or 3D reconstructions were produced. All CT scans at this location are performed using CT dose reduction for ALARA by means of automated exposure control. COMPARISON: None available. FINDINGS: PULMONARY ARTERIES: No central or segmental pulmonary embolus. THORACIC AORTA: No significant abnormality. HEART: No significant abnormality. LYMPHADENOPATHY: No significant thoracic lymphadenopathy. LUNGS/PLEURA: No acute airspace disease. No pleural effusion or pneumothorax. OTHER FINDINGS: None. UPPER ABDOMEN: No acute findings. SKELETAL SYSTEM: No acute osseous findings. IMPRESSION: No acute findings in the chest. No evidence of pulmonary embolism. Signer Name: Milan Mckenna MD Signed: 08/12/2021 6:36 PM Workstation Name: [id number]
[2021-08-12 19:59] VITALS: BP 119/68
[2021-08-12 20:14] LABS: Bilirubin,Urine NEG (Negative); Blood,Urine MOD (Negative); Color,Urine Straw (Yellow); Protein,Urine <15 mg/dL mg/dL (Negative); Urobilinogen,Urine < 2.0 mg/dL (<2.0)
[2021-08-12 20:31] LABS: RBC,Urine < 1.0 /HPF (0.0-6.0); WBC,Urine < 1.0 /HPF (0.0-6.0)
--- NOTE | 2021-08-13 08:49 | Electrocardiograph Report ---
[facility] Test Date: 2021-08-12 Test Time: 15:11:43 Pat Name: DONNIE LINARES Department: Room: Gender: F [employer]: TV : 1995 Requested By: TOYA BENITEZ Order Number: [id number] Reading MD: Nain Rodgers Measurements Intervals [place] Rate: 104 P: 61 [place]: 115 QRS: 43 QRSD: 75 T: 29 QT: 324 QTc: 427 Interpretive Statements Sinus tachycardia No previous ECG available for comparison Electronically Signed On 08-13-2021 8:49:44 EST by Nain Rodgers
== END 2021-08-12 19:58 | disposition home or self-care (01) ==
LOC: ED 14:51
DX: M79.662 Pain in left lower leg (principal); R06.02 Shortness of breath; R07.9 Chest pain, unspecified; Z87.891 Personal history of nicotine dependence
CPT/HCPCS: 36415; 71046; 71275; 80053; 81001; 83880; 84484; 85007; 85025; 93005; 93010; 93970; 99284; Q9967